=== PATIENT | male | born 1960 | race Caucasian/White ===

== ENCOUNTER 2017-07-13 13:09 | Inpatient (IN) | payer BC, OTHER ==
[~2017-07-13] VITALS: Ht 177.8 cm; Wt 164.0 kg
[~2017-07-13 13:09] MED LIST: ACET-1138 PO; AMLO-114 PO; ASPI81TA28 PO; DOXA2TAB PO; FEBU40TA PO; FLM4 PO; FRS/40 PO; INDO-24 PO; LISI40TA PO; METF500T PO; METO-217 PO; PRVC40 PO; TRIM100T20 PO; ZNTT/150 PO
[2017-07-13] MEDS ORDERED: ONDANSETRON INJ 2 MG/ML 2 ML VIAL IV PRN (13:45)
[2017-07-13] MEDS ORDERED: MoRPHine SULFATE 2 MG/ML CARP IV PRN (13:45)
[2017-07-13] MEDS ORDERED: MoRPHine SULFATE 10 MG/ML CARP/VIAL IV PRN (14:30)
[2017-07-13] MEDS ORDERED: MoRPHine SULFATE 4 MG/ML 1 ML CARP\\VIAL IV PRN (14:30)
[2017-07-13 15:25] VITALS: BP 107/48; PULSE 67; TEMP 36.7; O2SAT 96; BMI 51.9
[2017-07-13 16:17] LABS: HEMATOCRIT 36.6 % (42-52); MEAN CELL VOLUME 81.2 fL (80-100); MEAN CORPUSCULAR HEMOGLOBIN 25.1 pg (25-34); MEAN CORPUSCULAR HGB CONC 30.9 g/dl (32-36); PLATELET COUNT 313 K/uL (130-400); RED BLOOD COUNT 4.51 M/uL (4.7-6.1); WHITE BLOOD COUNT 8.52 K/uL (4.8-10.8)
[2017-07-13] MEDS: LACTATED RINGER'S 1000ML 1,000 ML IV SCH (16:36)
[2017-07-13 16:49] LABS: BUN/CREATININE RATIO 15.6 (10-20); CREATININE 1.3 mg/dl (0.60-1.40); POTASSIUM 3.9 mmol/L (3.5-5.1)
[2017-07-13 17:01] LABS: URINE APPEARANCE CLEAR (CLEAR); URINE BILIRUBIN NEG (NEG); URINE COLOR YELLOW; URINE NITRITE NEG (NEG); URINE SPECIFIC GRAVITY 1.027 (1.000-1.030); UROBILINOGEN NEG (NEG)
[2017-07-13 17:07] LABS: MANUAL MICROSCOPIC REQUIRED? NO; REVIEW REQ? NO
--- NOTE | 2017-07-13 18:24 | HISTORY & PHYSICAL EXAMINATION ---
DATE OF ADMISSION: 07/13/2017 HISTORY OF PRESENT ILLNESS: The patient is a 56-year-old white male with complaints of ongoing pain about his right knee after having a twisting event and then immediate onset of swelling. He had previously undergone a total knee arthroplasty in January of 2016 and has done well postop. He had developed prepatellar bursitis, eventually ended up in May of 2016, having an I&D with poly change. Doing well since that period of time until recently developing swelling of his prepatellar area after having a twisting injury on July 08. He presents today with a large hematoma involving his anterior aspect of his knee, which is palpable, appears to be in his prepatellar bursa, although with his knee replacement, obviously there is a concern. I have discussed the situation with him and his today extensively. He has been on chronic amoxicillin. He has had a bone scan and CT scans, which have been reviewed today and no evidence of obvious significantly increased uptake on his bone scan was noted, although the bone scan was a limited scan. The CT scan was also evaluated with no evidence of significant lucency or lytic lesions are noted. Although, in his x-ray, there is an area of his medial tibia, which does appear to have a lucent area. His sed rate was 49. His C-reactive protein was greater than 5. My concern is that of an intraarticular deep infection. I discussed the situation with him and his . I discussed treatment options including at least initially an I&D of his prepatellar bursa, but at the same time, possibly removal of implant and possible antibiotic spacer pending findings at the time of surgery with intraoperative frozen section, gram stain, etc. I discussed the situation with the patient today extensively. We discussed the treatment options. PAST MEDICAL HISTORY: Otherwise significant for diabetes, GERD, benign prostatic hypertrophy, morbid obesity and previous infection in his right knee as well as hypertension. PAST SURGICAL HISTORY: Significant for previous knee surgery and lumbar DJD. SOCIAL HISTORY: The patient has no history of smoking. Occasional alcohol use. Lives with his . ALLERGIES: CONSIST OF MELOXICAM, PROBENECID, TRAMADOL, NICKEL, AND COLCHICINE. MEDICATIONS: Include insulin, amoxicillin, ____, Ecotrin, Toprol, and oxycodone. PHYSICAL EXAMINATION: GENERAL: A very pleasant 56-year-old white male, being seen and evaluated. He is alert and oriented x3. Currently, in his wheelchair. HEENT: Otherwise atraumatic and normocephalic. HEART: Regular at 72 beats per minute. No murmurs noted. LUNGS: Clear without rales, rhonchi, or wheezes noted. ABDOMEN: Soft, nontender, and nondistended. Bowel sounds are present in all 4 quadrants. RECTAL: No rectal examination was performed. MUSCULOSKELETAL: Swelling of anterior right knee with a large hematoma. PLAN: For evacuation of hematoma, I&D, possible poly change, possible removal of implant and antibiotic spacers.
--- NOTE | 2017-07-13 18:37 | Medical Consult ---
Consultation Date of Consultation: Jul 13, 2017. Attending Physician: Jose Phillip D.O. Reason for Consultation: HTn DM anemia History of Present Illness This is a 56 yo m with a history of HTN, DMII ( no insulin) and multiple surgeries to his back and knee ( right knee arthroplasty) that is here for debridement of his right knee . He states that approx a week prior he was getting into his truck when he took a misstep. The next day the patient notes he had increasing pain and by 48 hours he had significant swelling of the right knee and was completely unable to ambulate on it because of pain. He was seen by his ortho and considering his history of joint infections it was decided he would have his knee debrided and evaluated for antibiotic disc vs revision. The patient has a significant history with regards to his back and knee surgery. In August of 2013 the patient had his first back surgery for urgent decompression of his back secondary to spinal stenosis and intractable back pain. A decompression was done of L1-L5. On October 04 2013 the patient had a fall and hardware had to be removed and revision of the back was required. Approximately a week after the revision the patient was admitted to the hospital for sepsis secondary to wound infection and he was treated with nafcillin for 8 weeks. From this time the patient has been on prophylactic daily antibiotics and follows with ID for this. This right knee surgery was the most recent and it was in jan 2016 where he underwent right knee arthroplasty. He has had difficulty with this knee since he fell onto it after the revision was completed and he notes he will have occasional and intermittent swelling but not like the patient is suffering from now. Patient also is noted to have some anemia. When discussing the patient's anemia with him he notes that he was placed on iron at one point but he had such severe constipation from the medication he self d/c and has not been on the medication since. He notes he has never tried IV iron. Past Medical/Surgical History 1. Lumbar decompression 2. Sepsis secondary to lumbar wound infection 3. Right knee arthroscopy 4. Thoracic stress fracture 5. DMII 6. HTn 7. Hyperlipidemia 8. BPH Family History Diabetes mellitus MOTHER FHx: myocardial infarction MOTHER, Onset:60 years & older Stroke MOTHER Social History Smoking Status: Never Smoker Smokeless Tobacco Use: No Alcohol Use: rare Drug Use: none Marital Status: Housing Status: lives with family Occupation Status: disabled Allergies Coded Allergies: Colchicine (Verified Allergy, Intermediate, RASH,HIVES,ERYTHEMA OF SKIN, 11/11/16) Meloxicam (Verified Allergy, Intermediate, RASH,HIVES,ERYTHEMA OF SKIN, ) Probenecid (Verified Allergy, Intermediate, RASH,HIVES,ERYTHEMA OF SKIN, 11/11/16) Sulfa Antibiotics (Verified Allergy, Intermediate, "SULFA DRUGS": "EYES SWELLED SHUT", 11/11/16) Tramadol (Verified Allergy, Intermediate, RASH,HIVES,ERYTHEMA OF SKIN, ) Nickel (Verified Allergy, Mild, RASH, 11/11/16) Current Inpatient Medications Current Inpatient Medications Medications (Trade) Dose Ordered Sig/Sammy Route Start Time Stop Time Status Last Admin Dose Admin Lactated Ringer's 1,000 ml @ 60 mls/hr [id number] IV 07/13/17 13:33 07/14/17 13:32 07/13/17 16:36 60 MLS/HR Oxycodone/ Acetaminophen (Percocet 5-325mg Tab) `1-2 TABS FOR PAIN `1 TAB... Q4H PRN PO 07/13/17 13:45 07/27/17 13:44 Ondansetron HCl (Zofran Inj) 4 mg Q6H PRN IV 07/13/17 13:45 08/12/17 13:44 Docusate Sodium (coLACE CAP) 100 mg BID PO 07/13/17 21:00 08/12/17 20:59 Pantoprazole Sodium (Protonix Tab) 40 mg QAM PO 07/14/17 09:00 08/13/17 08:59 Morphine Sulfate (MoRPHine SULFATE INJ) 2 mg Q4HWA PRN IV 07/13/17 13:45 07/27/17 13:44 Morphine Sulfate (MoRPHine SULFATE INJ) 4 mg Q4HWA PRN IV 07/13/17 14:30 07/27/17 14:29 Morphine Sulfate (MoRPHine SULFATE INJ) 6 mg Q4HWA PRN IV 07/13/17 14:30 07/27/17 14:29 Amlodipine Besylate (Norvasc Tab) 10 mg QAM PO 07/14/17 09:00 08/13/17 08:59 UNV Metoprolol Succinate (Toprol Xl Tab) 50 mg QAM PO 07/14/17 09:00 08/13/17 08:59 UNV Pravastatin Sodium (Pravachol Tab) 40 mg QAM PO 07/14/17 09:00 08/13/17 08:59 UNV Review of Systems Constitutional: No fever Eyes: No worsening of vision ENT: No hearing loss Respiratory: + dyspnea on exertion (states he is only short of breath because he is holding his breath because of the pain), No cough, No sputum, No wheezing , No shortness of breath Cardiovascular: No chest pain Abdomen: No pain, No nausea, No vomiting, No diarrhea, No constipation Musculoskeletal: + joint pain, + swelling, No muscle pain, No calf pain Genitourinary - Male: No hematuria, No dysuria Neurologic: No weakness, No numbness/tingling, No balance problems Psychiatric: No depression symptoms Endocrine: No fatigue Hematologic / Lymphatic: No abnormal bleeding/bruising Integumentary: No rash Physical Exam Date Time Temp Pulse Resp B/P (MAP) Pulse Ox O2 Delivery O2 Flow Rate FiO2 07/13/17 15:25 36.7 67 20 107/48 96 Room Air General Appearance: no apparent distress, + obese Head: normocephalic, atraumatic Eyes: normal inspection ENT: normal ENT inspection Neck: supple Respiratory/Chest: normal breath sounds, no respiratory distress, no accessory muscle use, + accessory muscle use (decreased to bilat bases) Cardiovascular: regular rate, rhythm, + pertinent finding (difficult to appropriately assess for murmur because of body habitus) Abdomen/GI: normal bowel sounds, non tender, soft, + pertinent finding ( umbilical hernia, reduciible) Back: normal inspection Extremities/Musculoskelatal: no calf tenderness, + pedal edema (+2 bilat pedal edema), + pertinent finding (swelling and tenderness noted of the right knee, limited ROM because of pain, minimal erythema ) Neurologic/Psych: alert, normal mood/affect, oriented x 3 Skin: normal color, + pertinent finding (stasis dermatitis changes noted on the bilat LE including no hair, contact dermatits below bilat UE) Lymphatic: no adenopathy Laboratory Results Last 24 Hours Test 07/13/17 16:03 07/13/17 16:25 07/13/17 16:37 07/13/17 17:09 White Blood Count 8.52 K/uL Red Blood Count 4.51 M/uL Hemoglobin 11.3 g/dL Hematocrit 36.6 % Mean Corpuscular Volume 81.2 fL Mean Corpuscular Hemoglobin 25.1 pg Mean Corpuscular Hemoglobin Concent 30.9 g/dl RDW Standard Deviation 46.1 fL RDW Coefficient of Variation 15.7 % Platelet Count 313 K/uL Mean Platelet Volume 10.0 fL Sodium Level 142 mmol/L Potassium Level 3.9 mmol/L Chloride Level 110 mmol/L Carbon Dioxide Level 24 mmol/L Anion Gap 8.0 mmol/L Blood Urea Nitrogen 20 mg/dl Creatinine 1.30 mg/dl Est Creatinine Clear Calc Drug Dose 95.8 ml/min Estimated GFR () 69.7 Estimated GFR (Non- 60.1 BUN/Creatinine Ratio 15.6 Random Glucose 120 mg/dl Calcium Level 9.0 mg/dl Urine Color YELLOW Urine Appearance CLEAR Urine pH 5.0 Urine Specific [place] 1.027 Urine Protein NEG Urine Glucose (UA) NEG Urine Ketones TRACE Urine Occult Blood NEG Urine Nitrite NEG Urine Bilirubin NEG Urine Urobilinogen NEG Urine Leukocyte Esterase SMALL Urine WBC (Auto) 10-30 /hpf Urine RBC (Auto) 0-4 /hpf Urine Hyaline Casts (Auto) 1-5 /lpf Urine Epithelial Cells (Auto) 10-20 /lpf Urine Bacteria (Auto) NEG Bedside Glucose 117 mg/dl Assessment & Plan This is a 56 yo m with a history of HTN, DMII and hyperlipidemia that is to undergo debridement of the right knee after trauma. He has a history of sepsis secondary to infection of lumbar incision site and has been on prophylactic antibiotics since. Medical Assessment; RCRI - Class I, risk is 0.04% - As the patient is unable to ambulate adequately for assessment via AHA guidelines RCRI was used to assess risk. Based on these guidelines the patient is at an acceptable risk for the recommended procedure - most recent echo was 2012, no recent stress test, results as follows - EF 65-70% - Moderate concentric LVH - Grade 1 diastolic failure - pain control per primary team HTN - Will continue amlodipine 10 mg however hold for systolic < 110 - continue metoprolol 50 mg qam for mortality benefit - hold ASA and restart at soonest possible time post op - lisinopril 40 mg daily and furosemide 40 mg daily has been held Hyperlipidemia - continue pravastatin for mortality benefit DMII - hold metformin 500 mg bid - sliding scale is available Anemia; microcytic; h/o of iron deficiency - recheck iron studies - recommend outpt EGD/ colonoscopy if not already done BPH - hold doxazosin 1 mg and Flomax 0.4 mg H/O sepsis secondary to surgical site infection/ s/p lumbar decompression - consult ID per primary team DVT Prophylaxis - SCD FULL CODE Additional Copies To Vicenta Cunningham MD Reviewed: Pt Seen/Exam by Me History Resident Physician Supervision Note: I interviewed and examined the patient. Discussed with Dr. Alejandre and agree with findings and plan as documented in the note. Any exceptions or clarifications are listed here: Pt here with persistent right knee pain, swelling, and suspected hematoma vs septic joint, going for I&D/washout tomorrow with Ortho. We are concsulted for medical management and preoperative evaluation. Pt has not been able to safely go up or down stairs for 2 years with his knee pain. He can walk 200 feet a t a time prior to this most recent injury without any CP or SOB. He has never had a cardiac cath and does not recall a cardiac stress test. No heart problems at all , no problems with anesthesia in the past. His ECG, CXR, labs were all personally reviewed by me. NAD, AAOx3 Morbidly obese, obese neck RRR no mgr CTAB no wcr, breathing unlabored Abd +BS, obese, soft NT ND Ext Right knee with decreased ROM, +moderate effusion with +TTP, mild erythema and warmth with some right leg edema trace, left leg no edema, 2+ DP pulses Skin: posterior upper arms and posterior thighs with diffuse scaly, erythematous maculopapular rash with some mild excoriation 56 yo male with HTN, DMII, JACOB on CPAP, contact dermatitis, h/o chronic ortho infection and back surgery, here with right knee hematoma vs septic joint. -for washout tomorrow, with acceptable medical risk as per RCRI, continue metoprolol, statin, holding ACEI,lasix -ordered CPAP for nocturnal use for JACOB -recommend EGD as outpt if Hemoccult positive given h/o Fe-def anemia, check Fe studies, Hemoccult Documented By: Vicenta Cunningham
--- NOTE | 2017-07-13 19:29 | Medical Consult ---
Consultation Date of Consultation: Jul 13, 2017. Attending Physician: Jose Phillip D.O. Reason for Consultation: right total knee, possible infection History of Present Illness 56-year-old male known to the Infectious Disease service with history right knee replacement in January 2016, subsequently developed infection leading to surgical debridement and poly exchange with cultures growing coagulase-negative staph at that time. Received course of IV antibiotics with improvement. Was doing well until recently when after a twisting injury developed significant right knee pain and swelling. He was found to have mildly elevated sed rate and C reactive protein, and has been admitted to the hospital for surgical exploration. He has not had significant fever or chills. Past Medical/Surgical History Medical Problems: (1) Right knee pain Status: Acute Medical Problems: (1) BPH (benign prostatic hyperplasia) (2) DM2 (diabetes mellitus, type 2) (3) GERD (gastroesophageal reflux disease) (4) HLD (hyperlipidemia) (5) HTN (hypertension) (6) Infection of total knee replacement (7) JACOB (obstructive sleep apnea) (8) Prepatellar bursitis (9) Thoracic spinal stenosis Surgical Problems: (1) Hx of total knee arthroplasty Family History Diabetes mellitus MOTHER FHx: myocardial infarction MOTHER, Onset:60 years & older Stroke MOTHER Social History Smoking Status: Never Smoker Smokeless Tobacco Use: No Alcohol Use: rare Drug Use: none Marital Status: Housing Status: lives with family Occupation Status: disabled Allergies Coded Allergies: Colchicine (Verified Allergy, Intermediate, RASH,HIVES,ERYTHEMA OF SKIN, ) Meloxicam (Verified Allergy, Intermediate, RASH,HIVES,ERYTHEMA OF SKIN, ) Probenecid (Verified Allergy, Intermediate, RASH,HIVES,ERYTHEMA OF SKIN, ) Sulfa Antibiotics (Verified Allergy, Intermediate, "SULFA DRUGS": "EYES SWELLED SHUT", 07/14/17) Tramadol (Verified Allergy, Intermediate, RASH,HIVES,ERYTHEMA OF SKIN, ) Nickel (Verified Allergy, Mild, RASH, 07/14/17) Current Inpatient Medications Current Inpatient Medications Medications (Trade) Dose Ordered Sig/Sammy Route Start Time Stop Time Status Last Admin Dose Admin Lactated Ringer's 1,000 ml @ 60 mls/hr [id number] IV 07/13/17 13:33 07/14/17 13:32 07/13/17 16:36 60 MLS/HR Oxycodone/ Acetaminophen (Percocet 5-325mg Tab) `1-2 TABS FOR PAIN `1 TAB... Q4H PRN PO 07/13/17 13:45 07/27/17 13:44 Ondansetron HCl (Zofran Inj) 4 mg Q6H PRN IV 07/13/17 13:45 08/12/17 13:44 Docusate Sodium (coLACE CAP) 100 mg BID PO 07/13/17 21:00 08/12/17 20:59 Pantoprazole Sodium (Protonix Tab) 40 mg QAM PO 07/14/17 09:00 08/13/17 08:59 Morphine Sulfate (MoRPHine SULFATE INJ) 2 mg Q4HWA PRN IV 07/13/17 13:45 07/27/17 13:44 Morphine Sulfate (MoRPHine SULFATE INJ) 4 mg Q4HWA PRN IV 07/13/17 14:30 07/27/17 14:29 Morphine Sulfate (MoRPHine SULFATE INJ) 6 mg Q4HWA PRN IV 07/13/17 14:30 07/27/17 14:29 Amlodipine Besylate (Norvasc Tab) 10 mg QAM PO 07/14/17 09:00 08/13/17 08:59 UNV Metoprolol Succinate (Toprol Xl Tab) 50 mg QAM PO 07/14/17 09:00 08/13/17 08:59 UNV Pravastatin Sodium (Pravachol Tab) 40 mg QAM PO 07/14/17 09:00 08/13/17 08:59 UNV Insulin Aspart (novoLOG ASPART) SLIDING SCALE G... ACHS SC 07/13/17 21:00 08/12/17 20:59 UNV Review of Systems All systems were reviewed and are negative except as per HPI Physical Exam Date Time Temp Pulse Resp B/P (MAP) Pulse Ox O2 Delivery O2 Flow Rate FiO2 07/13/17 15:25 36.7 67 20 107/48 96 Room Air General Appearance: WD/WN, no apparent distress, + obese Head: normocephalic, atraumatic Eyes: normal inspection, sclerae normal ENT: normal ENT inspection, pharynx normal Neck: supple, no adenopathy, thyroid normal, trachea midline Respiratory/Chest: chest non-tender, lungs clear, normal breath sounds, no respiratory distress Cardiovascular: regular rate, rhythm, no gallop, no murmur Abdomen/GI: normal bowel sounds, non tender, soft, no organomegaly Back: normal inspection, no CVA tenderness Extremities/Musculoskelatal: normal capillary refill, + pertinent finding ( Right knee swelling) Neurologic/Psych: alert, oriented x 3 Skin: normal color, no rash Lymphatic: no adenopathy Laboratory Results Last 24 Hours Test 07/13/17 16:03 07/13/17 16:25 07/13/17 16:37 07/13/17 17:09 White Blood Count 8.52 K/uL Red Blood Count 4.51 M/uL Hemoglobin 11.3 g/dL Hematocrit 36.6 % Mean Corpuscular Volume 81.2 fL Mean Corpuscular Hemoglobin 25.1 pg Mean Corpuscular Hemoglobin Concent 30.9 g/dl RDW Standard Deviation 46.1 fL RDW Coefficient of Variation 15.7 % Platelet Count 313 K/uL Mean Platelet Volume 10.0 fL Sodium Level 142 mmol/L Potassium Level 3.9 mmol/L Chloride Level 110 mmol/L Carbon Dioxide Level 24 mmol/L Anion Gap 8.0 mmol/L Blood Urea Nitrogen 20 mg/dl Creatinine 1.30 mg/dl Est Creatinine Clear Calc Drug Dose 95.8 ml/min Estimated GFR () 69.7 Estimated GFR (Non- 60.1 BUN/Creatinine Ratio 15.6 Random Glucose 120 mg/dl Calcium Level 9.0 mg/dl Urine Color YELLOW Urine Appearance CLEAR Urine pH 5.0 Urine Specific [place] 1.027 Urine Protein NEG Urine Glucose (UA) NEG Urine Ketones TRACE Urine Occult Blood NEG Urine Nitrite NEG Urine Bilirubin NEG Urine Urobilinogen NEG Urine Leukocyte Esterase SMALL Urine WBC (Auto) 10-30 /hpf Urine RBC (Auto) 0-4 /hpf Urine Hyaline Casts (Auto) 1-5 /lpf Urine Epithelial Cells (Auto) 10-20 /lpf Urine Bacteria (Auto) NEG Bedside Glucose 117 mg/dl Test 07/13/17 18:30 Assessment & Plan probable hematoma right knee following right knee replacement, Now for surgical debridement. infection to be ruled out at the time of surgery. Await operative cultures and Gram stain. Will adjust antibiotics once these are available. I have ordered sed rate, C reactive protein, and procalcitonin. Will follow.
--- NOTE | 2017-07-13 20:02 | DIAGNOSTIC IMAGING REPORT ---
CHEST 2 VIEWS ROUTINE HISTORY: 56 years-old Male preoperative exam. No reported acute chest complaints. COMPARISON: Chest radiographs 07/17/2016 TECHNIQUE: Frontal and lateral views of the chest FINDINGS: Cardiac silhouette is within normal limits. No pneumothorax, pleural effusion or focal airspace consolidation. There is minimal lateral left mid lung subsegmental atelectasis. Degenerative changes involve the bilateral shoulders. Posterior interbody ev and screw hardware of the thoracolumbar spine is partially imaged. Multilevel bridging osteophytosis throughout the spine is seen compatible with DISH. IMPRESSION: Minimal lateral left midlung atelectasis without acute cardiopulmonary process. The above report was generated using voice recognition software. It may contain grammatical, syntax or spelling errors. Electronically signed by: Amado Ceballos M.D. 07/13/2017 8:01 PM Dictated Date/Time: 07/13/2017 7:59 PM
[2017-07-13] MEDS ORDERED: INSULIN ASPART 100 UNITS/ML 3 ML PEN SC SCH (21:00)
[2017-07-13] MEDS ORDERED: DOCUSATE SODIUM 100 MG CAP PO SCH (21:00)
[2017-07-13 21:21] LABS: PROTHROMBIN TIME (PATIENT) 10.7 SECONDS (9.0-12.0)
[2017-07-13] MEDS ORDERED: GLUCOSE 10 TABS/TUBE PO PRN (21:45)
[2017-07-13] MEDS ORDERED: DEXTROSE 50% 50 ML SYR IV PRN (21:45)
[2017-07-13] MEDS ORDERED: GLUCAGON FOR INJ 1 MG VIAL SQ PRN (21:45)
[2017-07-13] MEDS ORDERED: GLUCOSE 40% GEL 15 GM TUBE PO PRN (21:45)
[2017-07-13 23:08] VITALS: BP 130/71; PULSE 60; TEMP 36.6; O2SAT 94
[2017-07-13] MEDS ORDERED: NURSING VERBAL MED ORDER ONE (23:30)
[2017-07-14] VITALS (10 sets, daily range): BP systolic 102–148; BP diastolic 53–73; PULSE 62–72; TEMP 36.4–36.7; O2SAT 91–97
[2017-07-14] MEDS: LACTATED RINGER'S 1000ML 1,000 ML IV SCH (05:36)
[2017-07-14] MEDS ORDERED: EpINEphrine INJ 1MG/ML AMP 1 MG/ML AMP ONE (06:32)
[2017-07-14] MEDS ORDERED: BUPIVACAINE 0.5 % 5 MG/1 ML PF 10ML VIAL ONE (06:32)
[2017-07-14] MEDS ORDERED: BUPIVACAINE 0.25% 30 ML VIAL ONE (06:32)
[2017-07-14] MEDS ORDERED: MIDAZOLAM HCL 1 MG/ML 2ML VIAL ONE (06:53)
[2017-07-14] MEDS ORDERED: DEXAMETHASONE SOD INJ 4 MG/ML VIAL ONE (06:53)
[2017-07-14] MEDS ORDERED: PROPOFOL IV EMULSION 10 MG/ML 20 ML VIAL IV ONE ×2 (06:53→07:56)
[2017-07-14] MEDS ORDERED: ONDANSETRON INJ 2 MG/ML 2 ML VIAL ONE (06:53)
[2017-07-14] MEDS ORDERED: LIDOCAINE HCL 2% 2 ML VIAL (20MG/ML) ONE (06:53)
[2017-07-14] MEDS ORDERED: FENTANYL CITRATE INJ 50 MCG/1 ML 2 ML VIAL ONE (06:54)
[2017-07-14] MEDS ORDERED: BACITRACIN 50000 UNIT VIAL ONE (06:56)
[2017-07-14] MEDS ORDERED: CEFAZOLIN 3000 MG/65 ML D5W 65 ML IV STA (07:05)
[2017-07-14] MEDS ORDERED: CEFAZOLIN IV 3,000 MG/65 ML D5W IV ONE (07:05)
--- NOTE | 2017-07-14 07:06 | History & Physical Bridge Note ---
H&P Re-Evaluation Bridge Note: I have examined the patient, reviewed the History & Physical and in the interval since the performance of the History & Physical I have noted the following changes of clinical significance: No changes noted
[2017-07-14] MEDS ORDERED: NURSING VERBAL MED ORDER ONE (07:15)
[2017-07-14] MEDS ORDERED: VANCOMYCIN HCL 1000MG/20ML VIAL ONE (07:26)
[2017-07-14] MEDS ORDERED: POVIDONE-IODINE OP SOLN 30 ML BTL ONE (07:31)
[2017-07-14] MEDS ORDERED: ROCURONIUM BROMIDE 10 MG/ML 5 ML VIAL IV ONE (07:57)
[2017-07-14] MEDS ORDERED: SUCCINYLCHOLINE CHLORIDE 20 MG/ML 10 ML VIAL IV ONE (07:57)
[2017-07-14] MEDS ORDERED: HYDROmorphone INJ 2 MG/ML SYR/VIAL IV PRN (08:00)
[2017-07-14] MEDS ORDERED: EpHEDrine SULFATE INJ 50 MG/ML AMP IV PRN (08:00)
[2017-07-14] MEDS ORDERED: LABETALOL HCL IV 5 MG/ML 20ML IV PRN (08:00)
[2017-07-14] MEDS ORDERED: PHENYLEPHRINE 100MCG/ML 5ML SYR IV PRN (08:00)
[2017-07-14] MEDS ORDERED: NALOXONE HCL 0.4 MG/1 ML VIAL/CARP IV PRN (08:00)
[2017-07-14] MEDS ORDERED: ATROPINE SULFATE 0.1 MG/ML 5ML SYR IV PRN (08:00)
[2017-07-14] MEDS ORDERED: FENTANYL CITRATE INJ 50 MCG/1 ML 2 ML VIAL IV PRN (08:00)
[2017-07-14] MEDS ORDERED: FLUMAZENIL 0.1 MG/1 ML 10 ML VIAL IV PRN (08:00)
[2017-07-14] MEDS ORDERED: MEPERIDINE HCL 25 MG/ML CARP IV PRN (08:00)
[2017-07-14] MEDS ORDERED: ONDANSETRON INJ 2 MG/ML 2 ML VIAL IV PRN ×2 (08:00→08:45)
[2017-07-14] MEDS ORDERED: NEOSTIGMINE METHYLSULFATE 1 MG/ML 10ML VIAL ONE (08:21)
[2017-07-14] MEDS ORDERED: METOCLOPRAMIDE HCL INJ 5 MG/ML 2 ML VIAL ONE (08:21)
[2017-07-14] MEDS ORDERED: GLYCOPYRROLATE INJ 0.2 MG/ML VIAL ONE ×2 (08:21→08:48)
[2017-07-14] MEDS ORDERED: EpHEDrine SULFATE 50MG/5ML SYR ONE (08:21)
[2017-07-14] MEDS ORDERED: ALUMINUM/MAGNESIUM/SIMETH (MAALOX MAX) 30 ML UDC PO PRN (08:45)
[2017-07-14] MEDS ORDERED: HYDROCODONE/ACETAMOPHEN 5/325MG TAB PO PRN (08:45)
[2017-07-14] MEDS ORDERED: MAGNESIUM HYDROXIDE SUSP 30 ML UDC PO PRN (08:45)
[2017-07-14] MEDS ORDERED: ZOLPIDEM TARTRATE 5 MG TAB PO PRN (08:45)
[2017-07-14] MEDS ORDERED: BISACODYL 10 MG SUPP PR PRN (08:45)
[2017-07-14] MEDS ORDERED: METOCLOPRAMIDE HCL INJ 5 MG/ML 2 ML VIAL IV PRN (08:45)
[2017-07-14] MEDS ORDERED: DiphenhydrAMINE HCL 50 MG/ML VIAL IV PRN (08:45)
[2017-07-14] MEDS ORDERED: SOD PHOSPHATE/SOD BIPHOSPHATE ENEMA 132 ML BTL PR PRN (08:45)
[2017-07-14] MEDS ORDERED: CEFAZOLIN IV 1,000 MG in DEXTROSE 5% 50ML 50 ML IV SCH (08:45)
--- NOTE | 2017-07-14 08:45 | [facility] Operative Report ---
Operative Report Operative Date Jul 14, 2017. Pre-Operative Diagnosis Hematoma anterior right knee Post-Operative Diagnosis Infected hematoma anterior right knee Procedure(s) Performed I&D anterior right knee with debridement lavage Pulsavac and versa jet debridement with packing with stimulation beads impregnated with vancomycin Surgeon Kenji Lumber Planer Surgeon(s) Max Estimated Blood Loss 5cc Findings Patient presents with large flexion flus anterior aspect of his knee since proximally 5 days prior crushable twisting injury no direct fall or load on it had an area of the involvement most distal aspect of the incision which was a palpable subcutaneous pre-extensor mechanism swelling bone scan showed soft tissue swelling CT scan showed no disruption of extensor mechanism sedimentation rate was 49 CRP was 5 patient history of total knee arthroplasty in January 2016 with subsequent poly-change spacer 4 months later time surgery was noted to be no communication after thorough irrigation debridement lavage with the intra-articular portion of knee joint after our preoperative cultures were sent incision made for thorough irrigation and debridement lavage and placement of stimulan beads Specimens cultures Complication(s) None Disposition Recovery Room / PACU Indications Anterior loculated collection of fluid anterior right knee Description of Procedure After proper prepping draping the right lower extremity incision made in the region of the distal third of the previous total knee incision dissection carried through subcutaneous tissue present pocket of infected hematoma involving the most inferior aspect of the wound did not track into the wound the extensor mechanism capsule all wound extent did not technique the intra- articular portion of the knee joint thorough irrigation debridement lavage as well as using a versa jet to debride all subcutaneous tissue and any necrotic tissue was performed after thorough irrigation debridement lavage performed liters of sterile saline solution impregnated with bacitracin versa jet was 1000 mL was used to further debridement of the stimulator and beads with 1 g per 5 mL's was prepared the back table small beads were prepared after thorough inspection that there is no indication intra-articular portion of the knee joint and no effusion of the knee joint incision was made to pack deep portion of the wound along the anteromedial tibia and subcutaneous gutters with the stimulant beads the wound was closed with a 2-0 Vicryl and skin clips with the Leydi addressing a sterile compressive dressing placed patient was taken to recovery in stable condition operative report dictated by Kenji. Please note that intraoperative cultures tissue was sent Max FLANAGAN was necessary for prepping draping retraction wound closure of deep fascia subcutaneous and skin was necessary for the case I attest to the content of the Intraoperative Record and any orders documented therein. Any exceptions are noted below.
--- NOTE | 2017-07-14 09:39 | DIAGNOSTIC IMAGING REPORT ---
RIGHT KNEE 2 VIEWS HISTORY: Postop right knee. AP/LATERAL IN PACU RIGHT KNEE Right COMPARISON: Right knee 05/21/2016. FINDINGS: There is again noted a right total knee arthroplasty. Midline anterior skin cindy. Multiple small antibiotic cement nodules are noted surrounding the proximal tibia. Moderate joint effusion. Abnormal periprosthetic lucency and malalignment of the patellar prosthesis. There is also mild periprosthetic lucency surrounding the tibial and femoral component. IMPRESSION: Multiple antibiotic cement nodules are noted surrounding the proximal tibia. There is abnormal periprosthetic lucency at the femoral, tibial, and patellar components. The patellar prosthesis appears displaced superiorly. Moderate joint effusion. Electronically signed by: Shubham Marroquin M.D. 07/14/2017 9:38 AM Dictated Date/Time: 07/14/2017 9:32 AM
--- NOTE | 2017-07-14 09:42 | Anesthesiology Progress Note ---
Anesthesia Post Op Note Date & Time Jul 14, 2017 at 09:42 Vital Signs Pain Intensity: 0 Vital Signs Past 12 Hours Date Time Temp Pulse Resp B/P (MAP) Pulse Ox O2 Delivery O2 Flow Rate FiO2 07/14/17 09:30 36.4 61 18 123/62 98 Oxymask 3 07/14/17 09:20 68 18 125/64 97 Oxymask 5 07/14/17 09:10 67 18 129/61 96 Oxymask 10 07/14/17 09:07 36.0 67 18 127/58 97 Oxymask 10 07/14/17 06:45 36.6 67 18 126/65 (85) 93 Room Air 07/13/17 23:30 Room Air CPAP 07/13/17 23:08 36.6 60 18 130/71 (90) 94 CPAP Notes Mental Status: alert / awake / arousable, participated in evaluation Pt Amnestic to Procedure: Yes Nausea / Vomiting: adequately controlled Pain: adequately controlled Airway Patency, RR, SpO2: stable & adequate BP & HR: stable & adequate Hydration State: stable & adequate Anesthetic Complications: no major complications apparent
[2017-07-14] MEDS ORDERED: PANTOprazole SOD 40 MG TAB PO SCH (10:00)
[2017-07-14] MEDS: INSULIN ASPART 100 UNITS/ML 3 ML PEN SC SCH ×4 (10:07→21:30)
[2017-07-14] MEDS: SODIUM CHLORIDE 0.9% 1000ML 1,000 ML IV SCH ×2 (10:09→19:54)
[2017-07-14] MEDS: PRAVASTATIN SOD 40 MG TAB PO SCH (10:12)
[2017-07-14] MEDS: METOPROLOL SUCC 50MG EXT REL TAB PO SCH (10:12)
[2017-07-14] MEDS: AMLODIPINE BESYLATE 5 MG TAB PO SCH (10:13)
[2017-07-14] MEDS: DOCUSATE SODIUM 100 MG CAP PO SCH ×2 (10:14→21:16)
[2017-07-14] MEDS: PANTOprazole SOD 40 MG TAB PO SCH (10:14)
[2017-07-14 10:40] LABS: MEAN CELL VOLUME 80.9 fL (80-100); MEAN CORPUSCULAR HGB CONC 32.1 g/dl (32-36); RED BLOOD COUNT 4.08 M/uL (4.7-6.1); WHITE BLOOD COUNT 6.72 K/uL (4.8-10.8)
[2017-07-14 10:41] LABS: BASO % 0.7 %; BASO ABS # 0.05 K/uL (0-0.2); COMPLETE YES; EOS % 3.4 %; LYMPH % 13.7 %; LYMPH ABS # 0.92 K/uL (1.2-3.4); MONO % 9.4 %; NEUT % 71.8 %; PLATELET COUNT 235 K/uL (130-400)
[2017-07-14] MEDS: TAMSULOSIN HCL 0.4 MG CAP PO SCH (10:47)
[2017-07-14] MEDS: MULTIVITAMIN TAB PO SCH (10:48)
[2017-07-14] MEDS: LISINOPRIL 40 MG TAB PO SCH (10:48)
[2017-07-14] MEDS: ASPIRIN 325 MG ECTAB PO SCH ×2 (10:49→21:16)
[2017-07-14] MEDS: FEBUXOSTAT 40 MG TAB PO SCH (10:49)
[2017-07-14] MEDS: DOXAZosin MESYLATE TAB 2 MG TAB PO SCH (10:49)
[2017-07-14 11:04] LABS: BUN/CREATININE RATIO 13.9 (10-20); CALCIUM 8.4 mg/dl (8.5-10.1); CREATININE 1.2 mg/dl (0.60-1.40); POTASSIUM 3.9 mmol/L (3.5-5.1)
[2017-07-14 11:09] LABS: FERRITIN 85.5 ng/ml (8.0-388.0)
[2017-07-14 11:16] LABS: ESTIMATED AVERAGE GLUCOSE 189 mg/dl; HA1C FLAG Normal (Normal)
[2017-07-14] MEDS: FERROUS GLUCONATE 324 MG TAB PO SCH ×2 (13:36→18:35)
--- NOTE | 2017-07-14 16:03 | Infectious Disease Progress Nt ---
Progress Note Date of Service Jul 14, 2017. Subjective Pt evaluation today including: conversation w/ patient, physical exam, chart review, lab review, review of studies, conversation w/ interventional sale consultant, review of inpatient medication list Patient is status post evacuation of hematoma, placement of Stimulans beads with vancomycin. Operative Gram stain is negative for organisms, culture is pending. Patient currently being treated with IV cefazolin. Currently afebrile and hemodynamically stable. All Other Systems: Reviewed and Negative Medications Current Inpatient Medications Medications (Trade) Dose Ordered Sig/Sammy Route Start Time Stop Time Status Last Admin Dose Admin Oxycodone/ Acetaminophen (Percocet 5-325mg Tab) `1-2 TABS FOR PAIN `1 TAB... Q4H PRN PO 07/13/17 13:45 07/27/17 13:44 Ondansetron HCl (Zofran Inj) 4 mg Q6H PRN IV 07/13/17 13:45 08/12/17 13:44 Pantoprazole Sodium (Protonix Tab) 40 mg QAM PO 07/14/17 09:00 08/13/17 08:59 07/14/17 10:14 40 MG Morphine Sulfate (MoRPHine SULFATE INJ) 2 mg Q4HWA PRN IV 07/13/17 13:45 07/27/17 13:44 Morphine Sulfate (MoRPHine SULFATE INJ) 4 mg Q4HWA PRN IV 07/13/17 14:30 07/27/17 14:29 07/14/17 02:10 4 MG Morphine Sulfate (MoRPHine SULFATE INJ) 6 mg Q4HWA PRN IV 07/13/17 14:30 07/27/17 14:29 Amlodipine Besylate (Norvasc Tab) 10 mg QAM PO 07/14/17 09:00 08/13/17 08:59 Metoprolol Succinate (Toprol Xl Tab) 50 mg QAM PO 07/14/17 09:00 08/13/17 08:59 07/14/17 10:12 50 MG Pravastatin Sodium (Pravachol Tab) 40 mg QAM PO 07/14/17 09:00 08/13/17 08:59 07/14/17 10:12 40 MG Glucose (Glucose 40% Gel) 15-30 GRAMS 15 GRAMS... UD PRN PO 07/13/17 21:45 08/12/17 21:44 Glucose (Glucose Chew Tab) 4-8 Tablets 4 Tabl... UD PRN PO 07/13/17 21:45 08/12/17 21:44 Dextrose (Dextrose 50% 50ML Syringe) 25-50ML OF 50% DW IV FOR... UD PRN IV 07/13/17 21:45 08/12/17 21:44 Glucagon (Glucagon Inj) 1 mg UD PRN SQ 07/13/17 21:45 08/12/17 21:44 Insulin Aspart (novoLOG ASPART) SLIDING SCALE G... Q6 SC 07/14/17 06:00 08/13/17 05:59 07/14/17 13:39 1 UNITS Sodium Chloride 1,000 ml @ 100 mls/hr Q10H IV 07/14/17 10:00 07/15/17 09:59 07/14/17 10:09 100 MLS/HR Oxycodone HCl (Roxicodone Immediate Rel Tab) 1 TABLET FOR PAIN RATING... Q4H PRN PO 07/14/17 08:45 07/28/17 08:44 Acetaminophen/ Hydrocodone Bitart ([place] 5/325 Tab) 1 TABLET FOR PAIN RATING... Q4H PRN PO 07/14/17 08:45 07/28/17 08:44 Magnesium Hydroxide (Milk Of Magnesia Susp) 30 ml Q6H PRN PO 07/14/17 08:45 08/13/17 08:44 Bisacodyl (Dulcolax Supp) 10 mg DAILY PRN MO 07/14/17 08:45 08/13/17 08:44 Sodium Biphosphate/ Sodium Phosphate (Fleet Enema) 132 ml DAILY PRN MO 07/14/17 08:45 08/13/17 08:44 Senna (Senokot Tab) 17.2 mg HS PO 07/14/17 21:00 08/13/17 20:59 Docusate Sodium (coLACE CAP) 100 mg BID PO 07/14/17 10:00 08/13/17 09:59 07/14/17 10:14 100 MG Diphenhydramine HCl (Benadryl Cap) 25 mg Q8H PRN PO 07/14/17 08:45 08/13/17 08:44 Diphenhydramine HCl (Benadryl Inj) 25 mg Q8H PRN IV 07/14/17 08:45 08/13/17 08:44 Al Hydrox/Mg Hydrox/Simethicone (Maalox Max Susp) 15 ml Q4H PRN PO 07/14/17 08:45 08/13/17 08:44 Zolpidem Tartrate (Ambien Tab) 5 mg HSZ PRN PO 07/14/17 08:45 08/13/17 08:44 Multivitamins (Multivitamin Tab) 1 tab QAM PO 07/14/17 10:00 08/13/17 09:59 07/14/17 10:48 1 TAB Ondansetron HCl (Zofran Inj) 4 mg Q6H PRN IV 07/14/17 08:45 08/13/17 08:44 Metoclopramide HCl (Reglan Inj) 10 mg Q6H PRN IV 07/14/17 08:45 08/13/17 08:44 Ferrous Gluconate (Ferrous Gluconate Tab) 324 mg TIDM PO 07/14/17 12:30 08/13/17 12:29 07/14/17 13:36 324 MG Pantoprazole Sodium (Protonix Tab) 40 mg QAM PO 07/14/17 10:00 08/13/17 09:59 07/14/17 10:47 40 MG Aspirin (Ecotrin Tab) 325 mg BID PO 07/14/17 10:00 08/13/17 09:59 07/14/17 10:49 325 MG Cefazolin Sodium 2000 mg/Dextrose 60 ml @ 100 mls/hr Q8H IV 07/14/17 16:45 07/15/17 01:20 Doxazosin Mesylate (Cardura Tab) 1 mg QAM PO 07/14/17 10:00 08/13/17 09:59 07/14/17 10:49 1 MG Lisinopril (Zestril Tab) 40 mg QAM PO 07/14/17 10:00 08/13/17 09:59 07/14/17 10:48 40 MG Tamsulosin HCl (Flomax Cap) 0.4 mg QAM PO 07/14/17 10:00 08/13/17 09:59 07/14/17 10:47 0.4 MG Febuxostat (Uloric) 40 mg QAM PO 07/14/17 10:00 08/13/17 09:59 07/14/17 10:49 40 MG Objective Vital Signs Date Time Temp Pulse Resp B/P (MAP) Pulse Ox O2 Delivery O2 Flow Rate FiO2 07/14/17 15:16 36.6 64 17 136/69 (91) 94 Room Air 07/14/17 13:00 72 18 124/64 (84) 94 Room Air 07/14/17 12:15 94 Room Air 07/14/17 12:00 71 18 141/65 (90) 92 Room Air 07/14/17 11:00 65 18 126/62 (83) 97 Nasal Cannula 2.0 07/14/17 10:31 68 16 102/53 (69) 94 Nasal Cannula 2.0 07/14/17 10:00 92 Nasal Cannula 2.0 07/14/17 10:00 36.7 65 17 108/63 (78) 92 Nasal Cannula 2.0 07/14/17 09:50 65 18 125/63 98 Nasal Cannula 2 07/14/17 09:40 62 18 123/61 98 Nasal Cannula 2 07/14/17 09:30 36.4 61 18 123/62 98 Oxymask 3 07/14/17 09:20 68 18 125/64 97 Oxymask 5 07/14/17 09:10 67 18 129/61 96 Oxymask 10 07/14/17 09:07 36.0 67 18 127/58 97 Oxymask 10 07/14/17 06:45 36.6 67 18 126/65 (85) 93 Room Air 07/13/17 23:30 Room Air CPAP 07/13/17 23:08 36.6 60 18 130/71 (90) 94 CPAP Physical Exam General Appearance: WD/WN, no apparent distress Eyes: normal inspection, EOMI, sclerae normal ENT: normal ENT inspection, pharynx normal Neck: supple, no adenopathy, trachea midline Respiratory/Chest: chest non-tender, lungs clear, normal breath sounds, no respiratory distress Cardiovascular: regular rate, rhythm, no gallop, no murmur Abdomen: normal bowel sounds, non tender, soft, no organomegaly Extremities: non-tender, normal capillary refill, + pertinent finding ( Surgical dressing intact) Neurologic/Psychiatric: alert, oriented x 3 Skin: normal color, warm/dry, no rash Lymphatic: no adenopathy Laboratory Results Date/Time Source Procedure Growth Status 07/14/17 08:00 Joint Fluid/Space (Synovial) Knee Right Gram Stain - Final Resulted 07/14/17 08:00 Joint Fluid/Space (Synovial) Knee Right Bacterial Culture Pending Resulted Last 24 Hours Test 07/13/17 16:03 07/13/17 16:37 07/13/17 17:09 07/13/17 20:39 White Blood Count 8.52 K/uL Red Blood Count 4.51 M/uL Hemoglobin 11.3 g/dL Hematocrit 36.6 % Mean Corpuscular Volume 81.2 fL Mean Corpuscular Hemoglobin 25.1 pg Mean Corpuscular Hemoglobin Concent 30.9 g/dl RDW Standard Deviation 46.1 fL RDW Coefficient of Variation 15.7 % Platelet Count 313 K/uL Mean Platelet Volume 10.0 fL Erythrocyte Sedimentation Rate 55 mm/hr Sodium Level 142 mmol/L Potassium Level 3.9 mmol/L Chloride Level 110 mmol/L Carbon Dioxide Level 24 mmol/L Anion Gap 8.0 mmol/L Blood Urea Nitrogen 20 mg/dl Creatinine 1.30 mg/dl Est Creatinine Clear Calc Drug Dose 95.8 ml/min Estimated GFR () 69.7 Estimated GFR (Non- 60.1 BUN/Creatinine Ratio 15.6 Random Glucose 120 mg/dl Calcium Level 9.0 mg/dl C-Reactive Protein 2.38 mg/dl Urine Color YELLOW Urine Appearance CLEAR Urine pH 5.0 Urine Specific [place] 1.027 Urine Protein NEG Urine Glucose (UA) NEG Urine Ketones TRACE Urine Occult Blood NEG Urine Nitrite NEG Urine Bilirubin NEG Urine Urobilinogen NEG Urine Leukocyte Esterase SMALL Urine WBC (Auto) 10-30 /hpf Urine RBC (Auto) 0-4 /hpf Urine Hyaline Casts (Auto) 1-5 /lpf Urine Epithelial Cells (Auto) 10-20 /lpf Urine Bacteria (Auto) NEG Bedside Glucose 117 mg/dl 113 mg/dl Test 07/13/17 20:57 07/13/17 23:52 07/14/17 05:53 07/14/17 09:18 Prothrombin Time 10.7 SECONDS Prothromb Time International Ratio 1.0 Procalcitonin < 0.05 ng/ml Bedside Glucose 127 mg/dl 125 mg/dl 161 mg/dl Test 07/14/17 10:13 07/14/17 12:18 White Blood Count 6.72 K/uL Red Blood Count 4.08 M/uL Hemoglobin 10.6 g/dL Hematocrit 33.0 % Mean Corpuscular Volume 80.9 fL Mean Corpuscular Hemoglobin 26.0 pg Mean Corpuscular Hemoglobin Concent 32.1 g/dl Platelet Count 235 K/uL Mean Platelet Volume 10.0 fL Neutrophils (%) (Auto) 71.8 % Lymphocytes (%) (Auto) 13.7 % Monocytes (%) (Auto) 9.4 % Eosinophils (%) (Auto) 3.4 % Basophils (%) (Auto) 0.7 % Neutrophils # (Auto) 4.82 K/uL Lymphocytes # (Auto) 0.92 K/uL Monocytes # (Auto) 0.63 K/uL Eosinophils # (Auto) 0.23 K/uL Basophils # (Auto) 0.05 K/uL RDW Standard Deviation 46.0 fL RDW Coefficient of Variation 15.6 % Immature Granulocyte % (Auto) 1.0 % Immature Granulocyte # (Auto) 0.07 K/uL Sodium Level 139 mmol/L Potassium Level 3.9 mmol/L Chloride Level 109 mmol/L Carbon Dioxide Level 23 mmol/L Anion Gap 7.0 mmol/L Blood Urea Nitrogen 17 mg/dl Creatinine 1.20 mg/dl Est Creatinine Clear Calc Drug Dose 103.8 ml/min Estimated GFR () 76.8 Estimated GFR (Non- 66.3 BUN/Creatinine Ratio 13.9 Random Glucose 154 mg/dl Estimated Average Glucose 189 mg/dl Hemoglobin A1c 8.2 % Calcium Level 8.4 mg/dl Iron Level 31 mcg/dl Total Iron Binding Capacity 279 mcg/dl Transferrin 221 mg/dl Transferrin % Saturation 10 % Ferritin 85.5 ng/ml Bedside Glucose 176 mg/dl Assessment and Plan probable hematoma right knee following right knee replacement with possible secondary infection. Patient to continue on current antibiotics pending operative cultures. I will adjust once available. Length of therapy yet to be determined.
[2017-07-14] MEDS: OXYCODONE/ACETAMINOPHEN 5-325 TAB PO PRN (16:47)
[2017-07-14] MEDS: CEFAZOLIN IV 2,000 MG in DEXTROSE 5% 50ML 50 ML IV SCH (16:47)
--- NOTE | 2017-07-14 17:21 | Family Medicine Progress Note ---
Progress Note Date of Service Jul 14, 2017. Subjective Pt evaluation today including: conversation w/ patient, physical exam, chart review, lab review, review of studies Pain: 7/10 PO Intake: WNL Voiding: no voiding problems Patient notes that he is having pain in his knee however he notes he has not had any pain medications since the am and is due denies any chest pain or SOB good spirits with hope for discharge tomorrow questions and concerns were addressed Constitutional: No fever Eyes: No worsening of vision ENT: No hearing loss Respiratory: No cough, No sputum, No wheezing, No shortness of breath, No dyspnea on exertion Cardiovascular: No chest pain Abdomen: No pain, No nausea, No vomiting, No diarrhea, No constipation Musculoskeletal: + joint pain, + swelling Male : No dysuria Neurologic: + balance problems, No memory loss, No weakness Psychiatric: No depression symptoms Endo: No fatigue Skin: No rash Medications Medications Administered Medications (Trade) Dose Ordered Sig/Sammy Route Start Time Stop Time Status Last Admin Dose Admin Lactated Ringer's 1,000 ml @ 60 mls/hr [id number] IV 07/13/17 13:33 07/14/17 13:32 DC 07/14/17 05:36 60 MLS/HR Oxycodone/ Acetaminophen (Percocet 5-325mg Tab) `1-2 TABS FOR PAIN `1 TAB... Q4H PRN PO 07/13/17 13:45 07/27/17 13:44 07/14/17 16:47 2 TAB Docusate Sodium (coLACE CAP) 100 mg BID PO 07/13/17 21:00 07/14/17 09:20 DC 07/13/17 20:45 100 MG Pantoprazole Sodium (Protonix Tab) 40 mg QAM PO 07/14/17 09:00 08/13/17 08:59 07/14/17 10:14 40 MG Morphine Sulfate (MoRPHine SULFATE INJ) 4 mg Q4HWA PRN IV 07/13/17 14:30 07/27/17 14:29 07/14/17 02:10 4 MG Metoprolol Succinate (Toprol Xl Tab) 50 mg QAM PO 07/14/17 09:00 08/13/17 08:59 07/14/17 10:12 50 MG Pravastatin Sodium (Pravachol Tab) 40 mg QAM PO 07/14/17 09:00 08/13/17 08:59 07/14/17 10:12 40 MG Insulin Aspart (novoLOG ASPART) SLIDING SCALE G... Q6 SC 07/14/17 06:00 08/13/17 05:59 07/14/17 13:39 1 UNITS Bacitracin (Bacitracin Inj) 50,000 units STK-MED ONCE .ROUTE 07/14/17 06:56 07/14/17 06:57 DC 07/14/17 06:56 50,000 UNITS Cefazolin Sodium (Ancef 3000 Mg/ 65 ml D5W) 3,000 mg STK-MED ONCE IV 07/14/17 07:05 07/14/17 07:06 DC 07/14/17 07:32 3,000 MG Vancomycin HCl (Vancomycin Inj) 500 mg STK-MED ONCE .ROUTE 07/14/17 07:26 07/14/17 07:27 DC 07/14/17 07:26 1,000 MG Povidone Iodine (Betadine Ophthalmic Prep Solution) 30 ml STK-MED ONCE .ROUTE 07/14/17 07:31 07/14/17 07:32 DC 07/14/17 07:31 20 ML Sodium Chloride 1,000 ml @ 100 mls/hr Q10H IV 07/14/17 10:00 07/15/17 09:59 07/14/17 10:09 100 MLS/HR Docusate Sodium (coLACE CAP) 100 mg BID PO 07/14/17 10:00 08/13/17 09:59 07/14/17 10:14 100 MG Multivitamins (Multivitamin Tab) 1 tab QAM PO 07/14/17 10:00 08/13/17 09:59 07/14/17 10:48 1 TAB Ferrous Gluconate (Ferrous Gluconate Tab) 324 mg TIDM PO 07/14/17 12:30 08/13/17 12:29 07/14/17 13:36 324 MG Pantoprazole Sodium (Protonix Tab) 40 mg QAM PO 07/14/17 10:00 08/13/17 09:59 07/14/17 10:47 40 MG Aspirin (Ecotrin Tab) 325 mg BID PO 07/14/17 10:00 08/13/17 09:59 07/14/17 10:49 325 MG Cefazolin Sodium 2000 mg/Dextrose 60 ml @ 100 mls/hr Q8H IV 07/14/17 16:45 07/15/17 01:20 07/14/17 16:47 100 MLS/HR Doxazosin Mesylate (Cardura Tab) 1 mg QAM PO 07/14/17 10:00 08/13/17 09:59 07/14/17 10:49 1 MG Lisinopril (Zestril Tab) 40 mg QAM PO 07/14/17 10:00 08/13/17 09:59 07/14/17 10:48 40 MG Tamsulosin HCl (Flomax Cap) 0.4 mg QAM PO 07/14/17 10:00 08/13/17 09:59 07/14/17 10:47 0.4 MG Febuxostat (Uloric) 40 mg QAM PO 07/14/17 10:00 08/13/17 09:59 07/14/17 10:49 40 MG Objective Vital Signs Date Time Temp Pulse Resp B/P (MAP) Pulse Ox O2 Delivery O2 Flow Rate FiO2 07/14/17 15:16 36.6 64 17 136/69 (91) 94 Room Air 07/14/17 13:00 72 18 124/64 (84) 94 Room Air 07/14/17 12:15 94 Room Air 07/14/17 12:00 71 18 141/65 (90) 92 Room Air 07/14/17 11:00 65 18 126/62 (83) 97 Nasal Cannula 2.0 07/14/17 10:31 68 16 102/53 (69) 94 Nasal Cannula 2.0 07/14/17 10:00 92 Nasal Cannula 2.0 07/14/17 10:00 36.7 65 17 108/63 (78) 92 Nasal Cannula 2.0 07/14/17 09:50 65 18 125/63 98 Nasal Cannula 2 07/14/17 09:40 62 18 123/61 98 Nasal Cannula 2 07/14/17 09:30 36.4 61 18 123/62 98 Oxymask 3 07/14/17 09:20 68 18 125/64 97 Oxymask 5 07/14/17 09:10 67 18 129/61 96 Oxymask 10 07/14/17 09:07 36.0 67 18 127/58 97 Oxymask 10 07/14/17 06:45 36.6 67 18 126/65 (85) 93 Room Air 07/13/17 23:30 Room Air CPAP 07/13/17 23:08 36.6 60 18 130/71 (90) 94 CPAP Physical Exam General Appearance: no apparent distress, + obese Eyes: normal inspection ENT: hearing grossly normal Neck: supple Respiratory/Chest: no respiratory distress, no accessory muscle use, + decreased breath sounds (bilat bases) Cardiovascular: regular rate, rhythm, no murmur (however difficult to truly assess because of habitus) Abdomen: normal bowel sounds, non tender, soft Extremities: normal inspection (however dressing on the right knee is noted), + pedal edema (+1 bilat) Neurologic/Psychiatric: alert, normal mood/affect, oriented x 3 Skin: normal color, warm/dry, no rash, + pertinent finding (no significant drainage noted at wound site) Lymphatic: no adenopathy Laboratory Results Results Past 24 Hours Test 07/13/17 20:39 07/13/17 20:57 07/13/17 23:52 07/14/17 05:53 Range/Units Bedside Glucose 113 127 125 70-99 mg/dl Prothrombin Time 10.7 9.0-12.0 SECONDS Prothromb Time International Ratio 1.0 0.9-1.1 Procalcitonin < 0.05 0-0.5 ng/ml Test 07/14/17 09:18 07/14/17 10:13 07/14/17 12:18 07/14/17 16:54 Range/Units Bedside Glucose 161 176 117 70-99 mg/dl White Blood Count 6.72 4.8-10.8 K/uL Red Blood Count 4.08 4.7-6.1 M/uL Hemoglobin 10.6 14.0-18.0 g/dL Hematocrit 33.0 42-52 % Mean Corpuscular Volume 80.9 80-100 fL Mean Corpuscular Hemoglobin 26.0 25-34 pg Mean Corpuscular Hemoglobin Concent 32.1 32-36 g/dl Platelet Count 235 130-400 K/uL Mean Platelet Volume 10.0 7.4-10.4 fL Neutrophils (%) (Auto) 71.8 % Lymphocytes (%) (Auto) 13.7 % Monocytes (%) (Auto) 9.4 % Eosinophils (%) (Auto) 3.4 % Basophils (%) (Auto) 0.7 % Neutrophils # (Auto) 4.82 1.4-6.5 K/uL Lymphocytes # (Auto) 0.92 1.2-3.4 K/uL Monocytes # (Auto) 0.63 0.11-0.59 K/uL Eosinophils # (Auto) 0.23 0-0.5 K/uL Basophils # (Auto) 0.05 0-0.2 K/uL RDW Standard Deviation 46.0 36.4-46.3 fL RDW Coefficient of Variation 15.6 11.5-14.5 % Immature Granulocyte % (Auto) 1.0 % Immature Granulocyte # (Auto) 0.07 0.00-0.02 K/uL Sodium Level 139 136-145 mmol/L Potassium Level 3.9 3.5-5.1 mmol/L Chloride Level 109 98-107 mmol/L Carbon Dioxide Level 23 21-32 mmol/L Anion Gap 7.0 3-11 mmol/L Blood Urea Nitrogen 17 7-18 mg/dl Creatinine 1.20 0.60-1.40 mg/dl Est Creatinine Clear Calc Drug Dose 103.8 ml/min Estimated GFR () 76.8 Estimated GFR (Non- 66.3 BUN/Creatinine Ratio 13.9 10-20 Random Glucose 154 70-99 mg/dl Estimated Average Glucose 189 mg/dl Hemoglobin A1c 8.2 4.5-5.6 % Calcium Level 8.4 8.5-10.1 mg/dl Iron Level 31 35-175 mcg/dl Total Iron Binding Capacity 279 250-450 mcg/dl Transferrin 221 200-360 mg/dl Transferrin % Saturation 10 20-50 % Ferritin 85.5 8.0-388.0 ng/ml Microbiology Results 07/14/17 Gram Stain - Final, Resulted 07/14/17 Bacterial Culture, Resulted Pending Assessment and Plan This is a 56 yo m with a history of HTN, DMII and hyperlipidemia that is to undergo debridement of the right knee after trauma. He has a history of sepsis secondary to infection of lumbar incision site and has been on prophylactic antibiotics since. Medical Assessment; RCRI - Class I, risk is 0.04% - As the patient is unable to ambulate adequately for assessment via AHA guidelines RCRI was used to assess risk. Based on these guidelines the patient is at an acceptable risk for the recommended procedure - most recent echo was 2012, no recent stress test, results as follows - EF 65-70% - Moderate concentric LVH - Grade 1 diastolic failure - pain control per primary team HTN - Will continue amlodipine 10 mg however hold for systolic < 110 - continue metoprolol 50 mg qam for mortality benefit - hold ASA and restart at soonest possible time post op - lisinopril 40 mg daily cont - hold lasix 40 mg Hyperlipidemia - continue pravastatin DMII - hold metformin 500 mg bid - sliding scale is available Anemia; microcytic; h/o of iron deficiency - recheck iron studies- reflective of iron def - recommend outpt EGD if not already done BPH - cont doxazosin 1 mg and Flomax 0.4 mg H/O sepsis secondary to surgical site infection/ s/p lumbar decompression - consult ID per primary team - pending antibiotic choice until cultures returned Sleep Apnea - CPAP from home DVT Prophylaxis - SCD FULL CODE Continued [facility] stay due to: ambulation difficulties Discharge planning: uncertain Reviewed: Pt Seen/Exam by Me History Resident Physician Supervision Note: I interviewed and examined the patient. Discussed with Dr. Alejandre and agree with findings and plan as documented in the note. Any exceptions or clarifications are listed here: Pt here with persistent right knee pain, swelling, and suspected hematoma vs septic joint, now s/p I&D/washout with Ortho. Gram stain from deep culture from knee with no bacteria, awaiting culture results. Started on Cefazolin today. Doing well post-op. NAD, AAOx3 Morbidly obese, obese neck RRR no mgr CTAB no wcr, breathing unlabored Abd +BS, obese, soft NT ND Ext Right knee with entire LE in AAKASH wrap not removed, left leg no edema Skin: posterior upper arms and posterior thighs with diffuse scaly, erythematous maculopapular rash with some mild excoriation 56 yo male with HTN, DMII, JACOB on CPAP, contact dermatitis, h/o chronic ortho infection and back surgery, here with right knee hematoma vs septic joint. -follow wound culture, continue Ancef for now, appreciate ID following -continue to follow ESR, Crp, CBC -ordered CPAP for nocturnal use for JACOB -Fe studies show anemia of chronic disease but also likely Fe-deficient as well given microcytosis -recommend EGD as outpt if Hemoccult positive given h/o Fe-def anemia and possible repeat colonoscopy (last one 2012) -added on Lantus 5 units at bedtime-needs CDE given uncontrolled DMII, should go on home insulin -ASA 325mg po bid for DVT proph -can stop IVFs in the AM Documented By: Vicenta Cunningham
[2017-07-14] MEDS ORDERED: NURSING DECISION MEDICATION ORDER SCH ×2 (18:45→21:15)
[2017-07-14] MEDS ORDERED: COUGH DROP (SUGAR FREE) LOZ 24 LOZ/1 BOX PO PRN (19:00)
[2017-07-14] MEDS: SENNA 8.6 MG TAB PO SCH (21:16)
[2017-07-14] MEDS: TRIAMCINOLONE ACET 0.025% CR 15 GM TUBE EXT SCH (21:16)
[2017-07-14] MEDS: INSULIN GLARGINE SOLOSTAR 100 UNITS/ML 3 ML PEN SC SCH (21:18)
[2017-07-15] MEDS: OXYCODONE HCL IR 5 MG TAB (IMMEDIATE RELEASE) PO PRN ×3 (00:26→19:36)
[2017-07-15] MEDS: CEFAZOLIN IV 2,000 MG in DEXTROSE 5% 50ML 50 ML IV SCH ×3 (00:26→19:36)
[2017-07-15 03:18] VITALS: BP 128/74; PULSE 61; TEMP 36.7; O2SAT 93
[2017-07-15] MEDS: SODIUM CHLORIDE 0.9% 1000ML 1,000 ML IV SCH (05:51)
[2017-07-15 07:20] VITALS: BP 146/70; PULSE 68; TEMP 36.5; O2SAT 93
[2017-07-15 08:13] LABS: BASO % 0.7 %; BASO ABS # 0.05 K/uL (0-0.2); COMPLETE YES; EOS % 3.5 %; HEMATOCRIT 32.3 % (42-52); IG% 1.2 %; LYMPH % 16.1 %; MEAN CELL VOLUME 81.2 fL (80-100); MEAN CORPUSCULAR HEMOGLOBIN 26.1 pg (25-34); MEAN CORPUSCULAR HGB CONC 32.2 g/dl (32-36); MEAN PLATELET VOLUME 10.1 fL (7.4-10.4); MONO % 9.8 %; NEUT % 68.7 %; PLATELET COUNT 233 K/uL (130-400); RED BLOOD COUNT 3.98 M/uL (4.7-6.1); WHITE BLOOD COUNT 7.46 K/uL (4.8-10.8)
[2017-07-15 08:43] LABS: BUN/CREATININE RATIO 12.4 (10-20)
--- NOTE | 2017-07-15 08:50 | Anesthesiology Progress Note ---
Anesthesia Post Op Note Date & Time Jul 15, 2017 at 08:49 Vital Signs Vital Signs Past 12 Hours Date Time Temp Pulse Resp B/P (MAP) Pulse Ox O2 Delivery O2 Flow Rate FiO2 07/15/17 07:20 36.5 68 18 146/70 (95) 93 Room Air 07/15/17 03:18 36.7 61 18 128/74 (92) 93 Room Air 07/15/17 00:15 CPAP 07/14/17 23:39 36.4 65 18 124/73 (90) 92 CPAP Notes Mental Status: alert / awake / arousable, participated in evaluation Pt Amnestic to Procedure: Yes Nausea / Vomiting: adequately controlled Pain: adequately controlled Airway Patency, RR, SpO2: stable & adequate BP & HR: stable & adequate Hydration State: stable & adequate Anesthetic Complications: no major complications apparent
[2017-07-15] MEDS: INSULIN ASPART 100 UNITS/ML 3 ML PEN SC SCH ×4 (09:06→20:42)
[2017-07-15] MEDS: FERROUS GLUCONATE 324 MG TAB PO SCH ×3 (09:07→17:45)
[2017-07-15] MEDS: TRIAMCINOLONE ACET 0.025% CR 15 GM TUBE EXT SCH ×2 (09:07→20:53)
[2017-07-15] MEDS: DOCUSATE SODIUM 100 MG CAP PO SCH ×2 (09:08→20:53)
[2017-07-15] MEDS: DOXAZosin MESYLATE TAB 2 MG TAB PO SCH (09:08)
[2017-07-15] MEDS: TAMSULOSIN HCL 0.4 MG CAP PO SCH (09:09)
[2017-07-15] MEDS: ASPIRIN 325 MG ECTAB PO SCH ×2 (09:09→20:53)
[2017-07-15] MEDS: MULTIVITAMIN TAB PO SCH (09:09)
[2017-07-15] MEDS: PRAVASTATIN SOD 40 MG TAB PO SCH (09:10)
[2017-07-15] MEDS: PANTOprazole SOD 40 MG TAB PO SCH (09:10)
[2017-07-15] MEDS: AMLODIPINE BESYLATE 5 MG TAB PO SCH (09:11)
[2017-07-15] MEDS: METOPROLOL SUCC 50MG EXT REL TAB PO SCH (09:12)
[2017-07-15] MEDS: LISINOPRIL 40 MG TAB PO SCH (09:13)
[2017-07-15] MEDS: FEBUXOSTAT 40 MG TAB PO SCH (09:13)
--- NOTE | 2017-07-15 10:01 | Orthopedic Progress Note ---
Orthopedic Progress Note Date of Service Jul 15, 2017. Subjective Post OP Day: 1 Reports: feeling well, pain controlled w PO medications, Denies: complaints, chest pain, SOB, nausea / vomiting, light headedness, calf pain Objective calves soft nontender, N/V intact, dressing C/D/I, A&O x3, toes mobile Date Time Temp Pulse Resp B/P (MAP) Pulse Ox O2 Delivery O2 Flow Rate FiO2 07/15/17 07:20 36.5 68 18 146/70 (95) 93 Room Air 07/15/17 03:18 36.7 61 18 128/74 (92) 93 Room Air 07/15/17 00:15 CPAP 07/14/17 23:39 36.4 65 18 124/73 (90) 92 CPAP 07/14/17 19:07 36.7 62 17 148/69 (95) 91 Room Air 07/14/17 16:30 Room Air 07/14/17 15:16 36.6 64 17 136/69 (91) 94 Room Air 07/14/17 13:00 72 18 124/64 (84) 94 Room Air 07/14/17 12:15 94 Room Air 07/14/17 12:00 71 18 141/65 (90) 92 Room Air 07/14/17 11:00 65 18 126/62 (83) 97 Nasal Cannula 2.0 07/14/17 10:31 68 16 102/53 (69) 94 Nasal Cannula 2.0 07/14/17 10:00 92 Nasal Cannula 2.0 07/14/17 10:00 36.7 65 17 108/63 (78) 92 Nasal Cannula 2.0 Laboratory Results 24 Hours: Test 07/14/17 10:13 07/15/17 07:43 White Blood Count 6.72 K/uL 7.46 K/uL Red Blood Count 4.08 M/uL 3.98 M/uL Hemoglobin 10.6 g/dL 10.4 g/dL Hematocrit 33.0 % 32.3 % Mean Corpuscular Volume 80.9 fL 81.2 fL Mean Corpuscular Hemoglobin 26.0 pg 26.1 pg Mean Corpuscular Hemoglobin Concent 32.1 g/dl 32.2 g/dl Platelet Count 235 K/uL 233 K/uL Mean Platelet Volume 10.0 fL 10.1 fL Neutrophils (%) (Auto) 71.8 % 68.7 % Lymphocytes (%) (Auto) 13.7 % 16.1 % Monocytes (%) (Auto) 9.4 % 9.8 % Eosinophils (%) (Auto) 3.4 % 3.5 % Basophils (%) (Auto) 0.7 % 0.7 % Neutrophils # (Auto) 4.82 K/uL 5.13 K/uL Lymphocytes # (Auto) 0.92 K/uL 1.20 K/uL Monocytes # (Auto) 0.63 K/uL 0.73 K/uL Eosinophils # (Auto) 0.23 K/uL 0.26 K/uL Basophils # (Auto) 0.05 K/uL 0.05 K/uL Assessment & Plan Assessment: POD #1 s/p I&D right knee with history of TKA, with debridement lavage Pulsavac and versa jet debridement with packing with stimulation beads impregnated with vancomycin -Elevated ESR, CRP; await intra-op cultures, continue on current antibiotics pending results, currently on Ancef q8 hours. Dr Sultana following, length of therapy yet to be determined. Discharge Planning DVT Prophylaxis: TEDs, SCDs, ASA
[2017-07-15 11:48] VITALS: Ht 177.8 cm; Wt 164.0 kg
[2017-07-15 11:59] VITALS: BP 141/67; PULSE 64; TEMP 36.4; O2SAT 94
[2017-07-15] MEDS: OXYCODONE/ACETAMINOPHEN 5-325 TAB PO PRN (12:24)
--- NOTE | 2017-07-15 12:26 | Family Medicine Progress Note ---
Progress Note Date of Service Jul 15, 2017. Subjective Pt evaluation today including: conversation w/ patient, physical exam, chart review, lab review, review of studies Pain: 5/10 PO Intake: WNL Voiding: no voiding problems Has been working with PT Working towards discharge, questions and concerns were addressed does not sleep well on the bed that is provided because it is uncomfortable Constitutional: No fever Eyes: No worsening of vision ENT: No hearing loss Respiratory: No cough, No sputum, No wheezing, No shortness of breath, No dyspnea on exertion Cardiovascular: No chest pain Abdomen: No pain, No nausea, No vomiting, No diarrhea, No constipation Musculoskeletal: + joint pain, + problem reported Male : No dysuria Neurologic: + balance problems, No weakness Psychiatric: No depression symptoms Endo: No fatigue Skin: No rash Medications Medications Administered Medications (Trade) Dose Ordered Sig/Sammy Route Start Time Stop Time Status Last Admin Dose Admin Lactated Ringer's 1,000 ml @ 60 mls/hr [id number] IV 07/13/17 13:33 07/14/17 13:32 DC 07/14/17 05:36 60 MLS/HR Oxycodone/ Acetaminophen (Percocet 5-325mg Tab) `1-2 TABS FOR PAIN `1 TAB... Q4H PRN PO 07/13/17 13:45 07/27/17 13:44 07/14/17 16:47 2 TAB Docusate Sodium (coLACE CAP) 100 mg BID PO 07/13/17 21:00 07/14/17 09:20 DC 07/13/17 20:45 100 MG Pantoprazole Sodium (Protonix Tab) 40 mg QAM PO 07/14/17 09:00 08/13/17 08:59 07/15/17 09:10 40 MG Morphine Sulfate (MoRPHine SULFATE INJ) 4 mg Q4HWA PRN IV 07/13/17 14:30 07/27/17 14:29 07/14/17 02:10 4 MG Amlodipine Besylate (Norvasc Tab) 10 mg QAM PO 07/14/17 09:00 08/13/17 08:59 07/15/17 09:11 10 MG Metoprolol Succinate (Toprol Xl Tab) 50 mg QAM PO 07/14/17 09:00 08/13/17 08:59 07/15/17 09:12 50 MG Pravastatin Sodium (Pravachol Tab) 40 mg QAM PO 07/14/17 09:00 08/13/17 08:59 07/15/17 09:10 40 MG Insulin Aspart (novoLOG ASPART) SLIDING SCALE G... Q6 SC 07/14/17 06:00 07/14/17 21:20 DC 07/14/17 13:39 1 UNITS Bacitracin (Bacitracin Inj) 50,000 units STK-MED ONCE .ROUTE 07/14/17 06:56 07/14/17 06:57 DC 07/14/17 06:56 50,000 UNITS Cefazolin Sodium (Ancef 3000 Mg/ 65 ml D5W) 3,000 mg STK-MED ONCE IV 07/14/17 07:05 07/14/17 07:06 DC 07/14/17 07:32 3,000 MG Vancomycin HCl (Vancomycin Inj) 500 mg STK-MED ONCE .ROUTE 07/14/17 07:26 07/14/17 07:27 DC 07/14/17 07:26 1,000 MG Povidone Iodine (Betadine Ophthalmic Prep Solution) 30 ml STK-MED ONCE .ROUTE 07/14/17 07:31 07/14/17 07:32 DC 07/14/17 07:31 20 ML Sodium Chloride 1,000 ml @ 100 mls/hr Q10H IV 07/14/17 10:00 07/15/17 09:59 DC 07/15/17 05:51 100 MLS/HR Oxycodone HCl (Roxicodone Immediate Rel Tab) 1 TABLET FOR PAIN RATING... Q4H PRN PO 07/14/17 08:45 07/28/17 08:44 07/15/17 09:19 10 MG Senna (Senokot Tab) 17.2 mg HS PO 07/14/17 21:00 08/13/17 20:59 07/14/17 21:16 17.2 MG Docusate Sodium (coLACE CAP) 100 mg BID PO 07/14/17 10:00 08/13/17 09:59 07/15/17 09:08 100 MG Multivitamins (Multivitamin Tab) 1 tab QAM PO 07/14/17 10:00 08/13/17 09:59 07/15/17 09:09 1 TAB Ferrous Gluconate (Ferrous Gluconate Tab) 324 mg TIDM PO 07/14/17 12:30 08/13/17 12:29 07/15/17 09:07 324 MG Pantoprazole Sodium (Protonix Tab) 40 mg QAM PO 07/14/17 10:00 07/14/17 17:37 DC 07/14/17 10:47 40 MG Aspirin (Ecotrin Tab) 325 mg BID PO 07/14/17 10:00 08/13/17 09:59 07/15/17 09:09 325 MG Cefazolin Sodium 2000 mg/Dextrose 60 ml @ 100 mls/hr Q8H IV 07/14/17 16:45 07/15/17 01:20 DC 07/15/17 00:26 100 MLS/HR Doxazosin Mesylate (Cardura Tab) 1 mg QAM PO 07/14/17 10:00 08/13/17 09:59 07/15/17 09:08 1 MG Lisinopril (Zestril Tab) 40 mg QAM PO 07/14/17 10:00 08/13/17 09:59 07/15/17 09:13 40 MG Tamsulosin HCl (Flomax Cap) 0.4 mg QAM PO 07/14/17 10:00 08/13/17 09:59 07/15/17 09:09 0.4 MG Febuxostat (Uloric) 40 mg QAM PO 07/14/17 10:00 08/13/17 09:59 07/15/17 09:13 40 MG Insulin Glargine (Lantus Solostar Pen) 5 units HS SC 07/14/17 21:00 08/13/17 20:59 07/14/17 21:18 5 UNITS Triamcinolone Acetonide (Kenalog 0.025% Crm) 1 appln BID EXT 07/14/17 21:00 08/13/17 20:59 07/15/17 09:07 1 APPLN Menthol (Nice Hermelindo) 1 hermelindo PRN PRN PO 07/14/17 19:00 08/13/17 18:59 07/14/17 18:53 1 HERMELINDO Objective Vital Signs Date Time Temp Pulse Resp B/P (MAP) Pulse Ox O2 Delivery O2 Flow Rate FiO2 07/15/17 11:59 36.4 64 16 141/67 (91) 94 07/15/17 07:20 36.5 68 18 146/70 (95) 93 Room Air 07/15/17 03:18 36.7 61 18 128/74 (92) 93 Room Air 07/15/17 00:15 CPAP 07/14/17 23:39 36.4 65 18 124/73 (90) 92 CPAP 07/14/17 19:07 36.7 62 17 148/69 (95) 91 Room Air 07/14/17 16:30 Room Air 07/14/17 15:16 36.6 64 17 136/69 (91) 94 Room Air 07/14/17 13:00 72 18 124/64 (84) 94 Room Air Physical Exam General Appearance: no apparent distress, + obese Eyes: normal inspection ENT: normal ENT inspection Neck: supple Respiratory/Chest: no respiratory distress, no accessory muscle use, + decreased breath sounds (decreased bilat bases) Cardiovascular: regular rate, rhythm, no murmur (difficult to hear well because of body habitus) Abdomen: normal bowel sounds, non tender, soft Extremities: normal inspection, no calf tenderness, + pedal edema (+ 1 bilat LE ) Neurologic/Psychiatric: alert, normal mood/affect, oriented x 3 Skin: + pertinent finding (dressing assessed and clean, dry) Lymphatic: no adenopathy Laboratory Results Results Past 24 Hours Test 07/14/17 16:54 07/14/17 20:39 07/15/17 07:43 07/15/17 11:57 Range/Units Bedside Glucose 117 144 70-99 mg/dl White Blood Count 7.46 4.8-10.8 K/uL Red Blood Count 3.98 4.7-6.1 M/uL Hemoglobin 10.4 14.0-18.0 g/dL Hematocrit 32.3 42-52 % Mean Corpuscular Volume 81.2 80-100 fL Mean Corpuscular Hemoglobin 26.1 25-34 pg Mean Corpuscular Hemoglobin Concent 32.2 32-36 g/dl Platelet Count 233 130-400 K/uL Mean Platelet Volume 10.1 7.4-10.4 fL Neutrophils (%) (Auto) 68.7 % Lymphocytes (%) (Auto) 16.1 % Monocytes (%) (Auto) 9.8 % Eosinophils (%) (Auto) 3.5 % Basophils (%) (Auto) 0.7 % Neutrophils # (Auto) 5.13 1.4-6.5 K/uL Lymphocytes # (Auto) 1.20 1.2-3.4 K/uL Monocytes # (Auto) 0.73 0.11-0.59 K/uL Eosinophils # (Auto) 0.26 0-0.5 K/uL Basophils # (Auto) 0.05 0-0.2 K/uL RDW Standard Deviation 47.1 36.4-46.3 fL RDW Coefficient of Variation 15.9 11.5-14.5 % Immature Granulocyte % (Auto) 1.2 % Immature Granulocyte # (Auto) 0.09 0.00-0.02 K/uL Sodium Level 138 136-145 mmol/L Potassium Level 4.0 3.5-5.1 mmol/L Chloride Level 107 98-107 mmol/L Carbon Dioxide Level 23 21-32 mmol/L Anion Gap 8.0 3-11 mmol/L Blood Urea Nitrogen 12 7-18 mg/dl Creatinine 1.00 0.60-1.40 mg/dl Est Creatinine Clear Calc Drug Dose 124.6 ml/min Estimated GFR () 95.7 Estimated GFR (Non- 82.6 BUN/Creatinine Ratio 12.4 10-20 Random Glucose 117 70-99 mg/dl Calcium Level 9.0 8.5-10.1 mg/dl Assessment and Plan This is a 56 yo m with a history of HTN, DMII and hyperlipidemia that is to undergo debridement of the right knee after trauma. He has a history of sepsis secondary to infection of lumbar incision site and has been on prophylactic antibiotics since. Medical Assessment; RCRI - Class I, risk is 0.04% - As the patient is unable to ambulate adequately for assessment via AHA guidelines RCRI was used to assess risk. Based on these guidelines the patient is at an acceptable risk for the recommended procedure - most recent echo was 2012, no recent stress test, results as follows - EF 65-70% - Moderate concentric LVH - Grade 1 diastolic failure - pain control per primary team HTN - Will continue amlodipine 10 mg however hold for systolic < 110 - continue metoprolol 50 mg qam - ASA bid for dvt prophylaxis - lisinopril 40 mg daily cont - hold lasix 40 mg Hyperlipidemia - continue pravastatin DMII - hold metformin 500 mg bid - sliding scale is available - lantus 5 units added qpm Anemia; microcytic; h/o of iron deficiency - recheck iron studies- reflective of iron def - recommend outpt EGD if not already done - colonoscopy was done 2012 approx and according to patient was WNL BPH - cont doxazosin 1 mg and Flomax 0.4 mg H/O sepsis secondary to surgical site infection/ s/p lumbar decompression - consult ID per primary team - pending antibiotic choice until cultures returned - currently on Cefazolin - follow up ESR Sleep Apnea - CPAP from home DVT Prophylaxis - SCD, ASA 325 bid FULL CODE Continued [facility] stay due to: ambulation difficulties, other Discharge planning: uncertain Reviewed: Pt Seen/Exam by Me History Resident Physician Supervision Note: I interviewed and examined the patient. Discussed with Dr. Alejandre and agree with findings and plan as documented in the note. Any exceptions or clarifications are listed here: Patient has no complaints. He reports that his last hemoglobin A1c in the fall 2015 was only 6% and he is reluctant to go on insulin as normally his sugars at home have been fine. He does admit that his diet at home is not as good as it should be. Pain in knee is controlled, awaiting culture results NAD, AAOx3 Morbidly obese, obese neck RRR no mgr CTAB no wcr, breathing unlabored Abd +BS, obese, soft NT ND Ext Right knee with entire LE in AAKASH wrap and brace not removed, left leg no edema Skin: posterior upper arms and posterior thighs with diffuse scaly, erythematous maculopapular rash with some mild excoriation 56 yo male with HTN, DMII, JACOB on CPAP, contact dermatitis, h/o chronic ortho infection and back surgery, here with right knee hematoma vs septic joint. ESR is trending downward, culture still pending but no growth so far. Continues on Ancef -follow wound culture, continue Ancef for now, appreciate ID following -continue to follow ESR, Crp, CBC here and as outpatient -Could possibly discharge to home tomorrow on oral antibiotics but will discuss with infectious disease -Continue CPAP for nocturnal use for JACOB -Fe studies show anemia of chronic disease but also likely Fe-deficient as well given microcytosis -recommend EGD as outpt if Hemoccult positive given h/o Fe-def anemia and possible repeat colonoscopy (last one 2012) -added on Lantus 5 units at bedtime-needs CDE given uncontrolled DMII, will not likely go home on insulin-can restart metformin on discharge -Can restart Lasix tomorrow -ASA 325mg po bid for DVT proph Documented By: Vicenta Cunningham
[2017-07-15 15:38] VITALS: BP 109/60; PULSE 67; TEMP 36.6; O2SAT 94
[2017-07-15] MEDS: POLYETHYLENE (MIRALAX) 17 GM PACK PO SCH (20:51)
[2017-07-15] MEDS: SENNA 8.6 MG TAB PO SCH (20:53)
[2017-07-15] MEDS: INSULIN GLARGINE SOLOSTAR 100 UNITS/ML 3 ML PEN SC SCH (21:04)
[2017-07-15 23:04] VITALS: BP 127/71; PULSE 66; TEMP 37.1; O2SAT 94
[2017-07-16] MEDS: OXYCODONE HCL IR 5 MG TAB (IMMEDIATE RELEASE) PO PRN (00:17)
[2017-07-16] MEDS: CEFAZOLIN IV 2,000 MG in DEXTROSE 5% 50ML 50 ML IV SCH (04:22)
[2017-07-16 06:34] LABS: BASO % 0.3 %; BASO ABS # 0.02 K/uL (0-0.2); COMPLETE YES; EOS % 4.4 %; IG% 1.2 %; LYMPH ABS # 1.16 K/uL (1.2-3.4); MEAN CELL VOLUME 81.5 fL (80-100); MEAN CORPUSCULAR HEMOGLOBIN 25.4 pg (25-34); MEAN CORPUSCULAR HGB CONC 31.2 g/dl (32-36); MEAN PLATELET VOLUME 9.6 fL (7.4-10.4); MONO % 11.5 %; NEUT % 67.6 %; PLATELET COUNT 214 K/uL (130-400); RED BLOOD COUNT 4.05 M/uL (4.7-6.1); WHITE BLOOD COUNT 7.74 K/uL (4.8-10.8)
[2017-07-16 07:00] VITALS: BP 157/74; PULSE 68; TEMP 36.4; O2SAT 95
[2017-07-16 07:08] LABS: BUN/CREATININE RATIO 10.6 (10-20); CALCIUM 8.9 mg/dl (8.5-10.1); CREATININE 1.2 mg/dl (0.60-1.40)
[2017-07-16] MEDS: INSULIN ASPART 100 UNITS/ML 3 ML PEN SC SCH ×2 (08:45→12:00)
[2017-07-16] MEDS: POLYETHYLENE (MIRALAX) 17 GM PACK PO SCH (08:48)
[2017-07-16] MEDS: PANTOprazole SOD 40 MG TAB PO SCH (08:49)
[2017-07-16] MEDS: ASPIRIN 325 MG ECTAB PO SCH (08:49)
[2017-07-16] MEDS: DOXAZosin MESYLATE TAB 2 MG TAB PO SCH (08:49)
[2017-07-16] MEDS: PRAVASTATIN SOD 40 MG TAB PO SCH (08:49)
[2017-07-16] MEDS: AMLODIPINE BESYLATE 5 MG TAB PO SCH (08:49)
[2017-07-16] MEDS: DOCUSATE SODIUM 100 MG CAP PO SCH (08:49)
[2017-07-16] MEDS: FEBUXOSTAT 40 MG TAB PO SCH (08:49)
[2017-07-16] MEDS: LISINOPRIL 40 MG TAB PO SCH (08:49)
[2017-07-16] MEDS: FERROUS GLUCONATE 324 MG TAB PO SCH ×2 (08:50→12:29)
[2017-07-16] MEDS: TRIAMCINOLONE ACET 0.025% CR 15 GM TUBE EXT SCH (08:50)
[2017-07-16] MEDS: TAMSULOSIN HCL 0.4 MG CAP PO SCH (08:50)
[2017-07-16] MEDS: MULTIVITAMIN TAB PO SCH (08:50)
[2017-07-16] MEDS: METOPROLOL SUCC 50MG EXT REL TAB PO SCH (09:25)
[2017-07-16] MEDS ORDERED: AMOXICILLIN/CLAVULANATE TAB 875 MG TAB PO ONE (11:47)
--- NOTE | 2017-07-16 11:57 | Discharge Instructions ---
Discharge Instructions Date of Service Jul 16, 2017. Admission Reason for Admission: Prepatellar Bursisis R Knee Discharge Discharge Diagnosis / Problem: Prepatellar Bursitis vs Infection Discharge Goals Goal(s): Prevent Disease Progression Activity Recommendations Activity Limitations: per Instructions/Follow-up section Weightbearing Status: Right weightbearing (as tolerated) . Instructions / Follow-Up Instructions / Follow-Up Weightbearing as tolerated. Use walker or crutches if needed. Prevena- This is a large suction dressing covering your incision. This will help pull any excess drainage from the wound and allow your incision to heal properly. You may shower with this if you can keep the unit outside of the shower. If any bleeding or leakage is noted please call your doctor's office. This will remain on your incision for 7 days and then should be removed. This can be done yourself or by the home nursing staff if applicable. The entire unit is disposable once removed. Once removed, keep incision clean and dry. If redness or drainage is noted, please call your surgeon. You may have increased drainage due to antibiotic beads that have been implanted in your wound. This is normal. Follow up with Dr Phillip 7-10 days. Call for appointment. [phone] Sultana in 7-10 days. Call for appointment [phone] Current Hospital Diet Patient's current hospital diet: Diabetes Type 2 Diet Discharge Diet Recommended Diet: Diabetes Type 2 Diet Procedures Procedures Performed: I&D anterior right knee with debridement lavage Pulsavac and versa jet debridement with packing with stimulation beads impregnated with vancomycin Pending Studies Studies pending at discharge: no Laboratory Results Hemoglobin A1c Test 07/14/17 10:13 Range/Units Estimated Average Glucose 189 mg/dl Hemoglobin A1c 8.2 H 4.5-5.6 % Medical Emergencies . Who to Call and When: Medical Emergencies: If at any time you feel your situation is an emergency, please call 911 immediately. . Non-Emergent Contact Non-Emergency issues call your: Surgeon Call Non-Emergent contact if: temperature is above 101.5, your pain is not controlled, your pain is worsening, wound has increased drainage, wound has increased redness . "Provider Documentation" section prepared by Petey Hernandez. . VTE Core Measure Inpt VTE Proph given/why not?: Other Anticoagulation, T.E.D. Stockings, SCD's [place] Drug Monitoring Program Search Results: patient reviewed within database, no issues identified
[2017-07-16] MEDS ORDERED: HYDR-5688 PO (12:11)
[2017-07-16] MEDS ORDERED: AMOX875T PO (12:11)
[2017-07-16] MEDS ORDERED: ASPEC325 PO (12:11)
--- NOTE | 2017-07-16 12:24 | Family Medicine Progress Note ---
Progress Note Date of Service Jul 16, 2017. Subjective Pt evaluation today including: conversation w/ patient, physical exam, chart review, lab review, review of studies, conversation w/ sap security consultant Pain: 0/10 PO Intake: WNL Voiding: no voiding problems Patient is doing well and walking with walker with assistance, working towards discharge and anticipating it is today Constitutional: No fever Eyes: No worsening of vision ENT: No hearing loss Respiratory: No cough, No sputum, No wheezing, No shortness of breath, No dyspnea on exertion, No dyspnea at rest Cardiovascular: No chest pain Abdomen: No pain, No nausea, No vomiting, No diarrhea, No constipation Male : No dysuria Neurologic: + balance problems, No weakness Psychiatric: No depression symptoms Heme: No abnormal bleeding/bruising Endo: No fatigue Skin: No rash Medications Medications Administered Medications (Trade) Dose Ordered Sig/Sammy Route Start Time Stop Time Status Last Admin Dose Admin Lactated Ringer's 1,000 ml @ 60 mls/hr [id number] IV 07/13/17 13:33 07/14/17 13:32 DC 07/14/17 05:36 60 MLS/HR Oxycodone/ Acetaminophen (Percocet 5-325mg Tab) `1-2 TABS FOR PAIN `1 TAB... Q4H PRN PO 07/13/17 13:45 07/27/17 13:44 07/15/17 12:24 2 TAB Docusate Sodium (coLACE CAP) 100 mg BID PO 07/13/17 21:00 07/14/17 09:20 DC 07/13/17 20:45 100 MG Pantoprazole Sodium (Protonix Tab) 40 mg QAM PO 07/14/17 09:00 08/13/17 08:59 07/16/17 08:49 40 MG Morphine Sulfate (MoRPHine SULFATE INJ) 4 mg Q4HWA PRN IV 07/13/17 14:30 07/27/17 14:29 07/14/17 02:10 4 MG Amlodipine Besylate (Norvasc Tab) 10 mg QAM PO 07/14/17 09:00 08/13/17 08:59 07/16/17 08:49 10 MG Metoprolol Succinate (Toprol Xl Tab) 50 mg QAM PO 07/14/17 09:00 08/13/17 08:59 07/16/17 09:25 50 MG Pravastatin Sodium (Pravachol Tab) 40 mg QAM PO 07/14/17 09:00 08/13/17 08:59 07/16/17 08:49 40 MG Insulin Aspart (novoLOG ASPART) SLIDING SCALE G... Q6 SC 07/14/17 06:00 07/14/17 21:20 DC 07/14/17 13:39 1 UNITS Bacitracin (Bacitracin Inj) 50,000 units STK-MED ONCE .ROUTE 07/14/17 06:56 07/14/17 06:57 DC 07/14/17 06:56 50,000 UNITS Cefazolin Sodium (Ancef 3000 Mg/ 65 ml D5W) 3,000 mg STK-MED ONCE IV 07/14/17 07:05 07/14/17 07:06 DC 07/14/17 07:32 3,000 MG Vancomycin HCl (Vancomycin Inj) 500 mg STK-MED ONCE .ROUTE 07/14/17 07:26 07/14/17 07:27 DC 07/14/17 07:26 1,000 MG Povidone Iodine (Betadine Ophthalmic Prep Solution) 30 ml STK-MED ONCE .ROUTE 07/14/17 07:31 07/14/17 07:32 DC 07/14/17 07:31 20 ML Sodium Chloride 1,000 ml @ 100 mls/hr Q10H IV 07/14/17 10:00 07/15/17 09:59 DC 07/15/17 05:51 100 MLS/HR Oxycodone HCl (Roxicodone Immediate Rel Tab) 1 TABLET FOR PAIN RATING... Q4H PRN PO 07/14/17 08:45 07/28/17 08:44 07/16/17 00:17 10 MG Senna (Senokot Tab) 17.2 mg HS PO 07/14/17 21:00 08/13/17 20:59 07/15/17 20:53 17.2 MG Docusate Sodium (coLACE CAP) 100 mg BID PO 07/14/17 10:00 08/13/17 09:59 07/16/17 08:49 100 MG Multivitamins (Multivitamin Tab) 1 tab QAM PO 07/14/17 10:00 08/13/17 09:59 07/16/17 08:50 1 TAB Ferrous Gluconate (Ferrous Gluconate Tab) 324 mg TIDM PO 07/14/17 12:30 08/13/17 12:29 07/16/17 08:50 324 MG Pantoprazole Sodium (Protonix Tab) 40 mg QAM PO 07/14/17 10:00 07/14/17 17:37 DC 07/14/17 10:47 40 MG Aspirin (Ecotrin Tab) 325 mg BID PO 07/14/17 10:00 08/13/17 09:59 07/16/17 08:49 325 MG Cefazolin Sodium 2000 mg/Dextrose 60 ml @ 100 mls/hr Q8H IV 07/14/17 16:45 07/15/17 01:20 DC 07/15/17 00:26 100 MLS/HR Doxazosin Mesylate (Cardura Tab) 1 mg QAM PO 07/14/17 10:00 08/13/17 09:59 07/16/17 08:49 1 MG Lisinopril (Zestril Tab) 40 mg QAM PO 07/14/17 10:00 08/13/17 09:59 07/16/17 08:49 40 MG Tamsulosin HCl (Flomax Cap) 0.4 mg QAM PO 07/14/17 10:00 08/13/17 09:59 07/16/17 08:50 0.4 MG Febuxostat (Uloric) 40 mg QAM PO 07/14/17 10:00 08/13/17 09:59 07/16/17 08:49 40 MG Insulin Glargine (Lantus Solostar Pen) 5 units HS SC 07/14/17 21:00 08/13/17 20:59 07/15/17 21:04 5 UNITS Triamcinolone Acetonide (Kenalog 0.025% Crm) 1 appln BID EXT 07/14/17 21:00 08/13/17 20:59 07/16/17 08:50 1 APPLN Menthol (Nice Hermelindo) 1 hermelindo PRN PRN PO 07/14/17 19:00 08/13/17 18:59 07/14/17 18:53 1 HERMELINDO Cefazolin Sodium 2000 mg/Dextrose 60 ml @ 100 mls/hr Q8H IV 07/15/17 12:00 07/16/17 11:48 DC 07/16/17 04:22 100 MLS/HR Polyethylene (Miralax Powder Packet) 17 gm BID PO 07/15/17 21:00 08/14/17 20:59 07/16/17 08:48 17 GM Objective Vital Signs Date Time Temp Pulse Resp B/P (MAP) Pulse Ox O2 Delivery O2 Flow Rate FiO2 07/16/17 08:27 Room Air 07/16/17 07:00 36.4 68 16 157/74 (101) 95 Room Air 07/16/17 00:15 CPAP 07/15/17 23:04 37.1 66 18 127/71 (89) 94 Room Air 07/15/17 15:45 Room Air 07/15/17 15:38 36.6 67 18 109/60 (76) 94 Room Air Physical Exam General Appearance: no apparent distress, + obese Eyes: normal inspection ENT: normal ENT inspection Neck: supple Respiratory/Chest: normal breath sounds, no respiratory distress, no accessory muscle use Cardiovascular: regular rate, rhythm, no murmur Abdomen: normal bowel sounds, non tender, soft Extremities: no pedal edema, no calf tenderness, + pertinent finding (carlos stockings are on ) Neurologic/Psychiatric: alert, normal mood/affect, oriented x 3 Skin: normal color, warm/dry, no rash, + pertinent finding (incision site is clean and dry) Lymphatic: no adenopathy Laboratory Results Results Past 24 Hours Test 07/15/17 17:09 07/15/17 20:36 07/16/17 06:12 07/16/17 08:02 Range/Units Bedside Glucose 119 142 118 70-99 mg/dl White Blood Count 7.74 4.8-10.8 K/uL Red Blood Count 4.05 4.7-6.1 M/uL Hemoglobin 10.3 14.0-18.0 g/dL Hematocrit 33.0 42-52 % Mean Corpuscular Volume 81.5 80-100 fL Mean Corpuscular Hemoglobin 25.4 25-34 pg Mean Corpuscular Hemoglobin Concent 31.2 32-36 g/dl Platelet Count 214 130-400 K/uL Mean Platelet Volume 9.6 7.4-10.4 fL Neutrophils (%) (Auto) 67.6 % Lymphocytes (%) (Auto) 15.0 % Monocytes (%) (Auto) 11.5 % Eosinophils (%) (Auto) 4.4 % Basophils (%) (Auto) 0.3 % Neutrophils # (Auto) 5.24 1.4-6.5 K/uL Lymphocytes # (Auto) 1.16 1.2-3.4 K/uL Monocytes # (Auto) 0.89 0.11-0.59 K/uL Eosinophils # (Auto) 0.34 0-0.5 K/uL Basophils # (Auto) 0.02 0-0.2 K/uL RDW Standard Deviation 47.2 36.4-46.3 fL RDW Coefficient of Variation 15.7 11.5-14.5 % Immature Granulocyte % (Auto) 1.2 % Immature Granulocyte # (Auto) 0.09 0.00-0.02 K/uL Sodium Level 138 136-145 mmol/L Potassium Level 4.0 3.5-5.1 mmol/L Chloride Level 107 98-107 mmol/L Carbon Dioxide Level 26 21-32 mmol/L Anion Gap 5.0 3-11 mmol/L Blood Urea Nitrogen 13 7-18 mg/dl Creatinine 1.20 0.60-1.40 mg/dl Est Creatinine Clear Calc Drug Dose 103.8 ml/min Estimated GFR () 76.8 Estimated GFR (Non- 66.3 BUN/Creatinine Ratio 10.6 10-20 Random Glucose 124 70-99 mg/dl Calcium Level 8.9 8.5-10.1 mg/dl Assessment and Plan This is a 56 yo m with a history of HTN, DMII and hyperlipidemia that is to undergo debridement of the right knee after trauma. He has a history of sepsis secondary to infection of lumbar incision site and has been on prophylactic antibiotics since. As the wound cultures were negative to day plan to change him to augmentin 875 bid x 10 days and follow up with ID in outpatient setting. HTN - continue amlodipine 10 mg - continue metoprolol 50 mg qam - ASA bid for dvt prophylaxis - lisinopril 40 mg daily cont - Lasix 40 mg can be resumed Hyperlipidemia - continue pravastatin DMII - continue 500 mg metformin bid - please follow up with PCP for HBA1C 8.6% Anemia; microcytic; h/o of iron deficiency - recheck iron studies- reflective of iron def - recommend outpt EGD if not already done - colonoscopy was done 2012 approx and according to patient was WNL BPH - cont doxazosin 1 mg and Flomax 0.4 mg H/O sepsis secondary to surgical site infection/ s/p lumbar decompression - consult ID per primary team - received Cefazolin - plan to transition to augmentin 875 mg bid x 10 days - recommend follow up with ID - follow up ESR and CBC in one week Sleep Apnea - CPAP from home DVT Prophylaxis - SCD, ASA 325 bid FULL CODE Continued [facility] stay due to: other Discharge planning: home with home health Reviewed: Pt Seen/Exam by Me History Resident Physician Supervision Note: I interviewed and examined the patient. Discussed with Dr. Alejandre and agree with findings and plan as documented in the note. Any exceptions or clarifications are listed here: Patient feeling well today, tolerating diet, pain is controlled, no chest pain or shortness of breath. NAD, AAOx3 Morbidly obese, obese neck RRR no mgr CTAB no wcr, breathing unlabored Abd +BS, obese, soft NT ND Ext Right knee with entire LE in AAKASH wrap and brace not removed, left leg no edema Skin: posterior upper arms and posterior thighs with diffuse scaly, erythematous maculopapular rash with some mild excoriation 56 yo male with HTN, DMII, JACOB on CPAP, contact dermatitis, h/o chronic ortho infection and back surgery, here with right knee hematoma vs septic joint. ESR is trending downward, culture still pending but no growth so far. Continues on Ancef for now but will discharged home today on Augmentin as per infectious disease. -follow wound culture as an outpatient follow-up with infectious disease as an outpatient -continue to follow ESR, Crp, CBC here and as outpatient -Fe studies show anemia of chronic disease but also likely Fe-deficient as well given microcytosis -recommend EGD as outpt if Hemoccult positive given h/o Fe-def anemia and possible repeat colonoscopy (last one 2012) --can restart metformin on discharge and follow up with PCP for diabetes -ASA 325mg po bid for DVT proph Documented By: Vicenta Cunningham
[2017-07-16 16:00] VITALS: BP 121/69; PULSE 70; TEMP 36.6; O2SAT 94
[2017-07-16] MEDS ORDERED: DOXY1TAB6 PO (16:05)
[2017-07-16 16:40] VITALS: BP 121/69; PULSE 70; TEMP 36.6; O2SAT 94
[2017-07-16] MEDS ORDERED: DOXYCYCLINE HYCLATE 100 MG CAP PO ONE (17:00)
[2017-07-16] MEDS ORDERED: AMOXICILLIN/CLAVULANATE TAB 875 MG TAB PO SCH (17:45)
--- NOTE | 2017-07-22 09:39 | DISCHARGE SUMMARY ---
DISCHARGE DIAGNOSIS: Infected hematoma, anterior right knee. SECONDARY DIAGNOSES: History of sepsis due to lumbar wound infection, diabetes mellitus type 2, hypertension, hyperlipidemia, and benign prostatic hypertrophy. CONSULTS: Dr. Alejandre and Dr. Catracho Sultana. COMPLICATIONS: None. PROCEDURES: Irrigation and debridement, anterior right knee with debridement and lavage, Pulsavac and Versajet debridement with packing Stimulan beads and placement with vancomycin. BRIEF HISTORY: As dictated in the history and physical. HOSPITAL SUMMARY: The patient admitted on the above-noted date with the above-noted infection. Medical consult was placed and the patient was cleared for surgery and Dr. Sultana saw the patient for infectious disease consult. By 07/14/2017, the patient was taken to the operating room and the above-noted procedure was performed, which he tolerated well. On his first postoperative day, he was feeling well, pain was controlled. Calves were soft and nontender, neurovascularly intact. Dressings clean, dry and intact. Toes were mobile. Hemoglobin was 10.4, white count was 7.4 and he was continued on IV antibiotics and plans are to follow cultures and await Dr. Sultana's recommendations. By his second postoperative day, I was contacted by Dr. Alejandre who had spoken to Dr. Sultana who stated that he was asking the patient to be started on Augmentin p.o. b.i.d. and plan for discharge to home. At that point in time, the cultures had come up positive for staph species, but finals had not been achieved at that point in time. I contacted Dr. Sultana and discussed the culture results with him and plans were to add doxycycline to his antibiotic regimen and that he could be discharged to home and that he would follow culture results accordingly. He was otherwise remaining stable. Prevena wound VAC was functioning and there is no drainage and he was ambulating without much difficulty and remaining medically stable and it was felt that he could be discharged to home on 07/16/2017. For further review, please see chart. LAB AND X-RAY DATA: As per chart. DISCHARGE INSTRUCTIONS: The patient was discharged to home in satisfactory condition on 07/16/2017. DIET: Diabetic. ACTIVITY: Weightbearing as tolerated, right lower extremity. INSTRUCTIONS: Use walker for crutches if needed. Follow Prevena dressing instructions. He may follow drainage of the wound if any and follow up with Dr. Phillip in 7-10 days. The patient to call for appointment and follow up with Dr. Sultana in 7-10 days. The patient to call for appointment. DISCHARGE MEDICATIONS: Augmentin 875/125 one tab p.o. b.i.d., aspirin 325 mg p.o. b.i.d. for 14 days, doxycycline 100 mg 1 tab p.o. b.i.d., Orla 5/325 1-2 tabs p.o. q. 4 hours p.r.n. Resume home meds as listed. Stop taking acetaminophen, indomethacin and trimethoprim. Resume your once daily dosing of aspirin 81 mg tablet after stopping the b.i.d. dosing that has been originally started after 14 days. MTDD
== END 2017-07-16 17:45 | disposition home health service (06) | DRG 909 ==
LOC: C.MSN 14:22
PROVIDERS: ADMIT Orthopaedic Surgery; ATTEND Orthopaedic Surgery
PROC: 3E1U38Z Irrigation of Joints using Irrigating Substance, Percutaneous Approach (ICD-10-PCS; principal; 2017-07-14 07:15)
PROC: 3E0U029 Introduction of Other Anti-infective into Joints, Open Approach (ICD-10-PCS; principal; 2017-07-14 07:15)
PROC: 0MDN0ZZ Extraction of Right Knee Bursa and Ligament, Open Approach (ICD-10-PCS; principal; 2017-07-14 07:15)
DX: S86.29 Other injury of muscle(s) and tendon(s) of anterior muscle group at lower leg level (principal); E11.9 Type 2 diabetes mellitus without complications; K21.9 Gastro-esophageal reflux disease without esophagitis; N40.0 Benign prostatic hyperplasia without lower urinary tract symptoms; I10 Essential (primary) hypertension; D50.9 Iron deficiency anemia, unspecified; E78.5 Hyperlipidemia, unspecified; G47.33 Obstructive sleep apnea (adult) (pediatric); E66.01 Morbid (severe) obesity due to excess calories; Y92.014 Private driveway to single-family (private) house as the place of occurrence of the external cause; X50.0XXA Overexertion from strenuous movement or load, initial encounter; Z96.651 Presence of right artificial knee joint

== ENCOUNTER → 2018-02-08 | Outpatient (CLI) | payer BC ==
[~2018-02-08] MED LIST changes: -ACET-1138 PO; +ASPEC325 PO; -ASPI81TA28 PO; +HYDR-5688 PO; -INDO-24 PO; +RANI150T85 PO; -TRIM100T20 PO; -ZNTT/150 PO
== END | disposition home or self-care (01) ==
LOC: C.LAB 13:11
PROVIDERS: ATTEND Orthopaedic Surgery
DX: M25.461 Effusion, right knee (principal)